=== PATIENT | female | born 1990 | race Caucasian/White ===

== ENCOUNTER 2022-11-04 11:17 | Emergency (ER) | payer OTHER, SELFPAY ==
[2022-11-04 11:42] VITALS: BP 126/79; PULSE 77; RESP 16; TEMP 36.3; O2SAT 99
--- NOTE | 2022-11-04 12:07 | ED.URI ---
HPI - URI/Sore Throat General Chief Complaint: Upper Respiratory Infection Stated Complaint: Sore Throat,Headache,Rt Ear Irritation Time Seen by Provider: 11/04/22 11:53 Source: patient, RN notes reviewed and old records reviewed Mode of arrival: ambulatory Limitations: no limitations History of Present Illness HPI Narrative: 32-year-old presents to the [facility] with complaints of sore throat, right ear pain and a sore on the right side of her tongue for 5 days. Patient reports that she has had swollen glands for several months seen her primary care for it. Denies any fevers No treatment prior to arrival Onset (ago): day(s) (5) Related Data Home Medications Medication Instructions Recorded Confirmed amitriptyline 25 mg tablet mg 11/04/22 famotidine 20 mg tablet mg 11/04/22 Allergies Allergy/AdvReac Type Severity Reaction Status Date / Time No Known Allergies Allergy Verified 11/04/22 12:13 Review of Systems Review of Systems: All systems reviewed & are unremarkable except as noted in HPI and below Constitutional: Constitutional: Reports no additional constitutional complaints Eyes: Eyes: Reports no additional eye complaints ENT: Reports as per HPI Cardiovascular: Cardiovascular: Reports no additional cardiovascular complaints, Denies chest pain and Denies dyspnea Respiratory: Respiratory: Reports no additional respiratory complaints, Denies chest congestion, Denies cough and Denies dyspnea Gastrointestinal: Gastrointestinal: Reports no additional gastrointestinal complaints, Denies abdominal pain, Denies nausea and Denies vomiting Musculoskeletal: Musculoskeletal: Reports no additional musculoskeletal complaints Integumentary/Breasts: Skin/Breast: Reports system reviewed and no additional complaints, except as docu Neurologic: Reports system reviewed and no additional complaints, except as documented Psychiatric: Psychiatric: Reports no additional psychiatric complaints Allergic/Immunologic: Allergic/Immunologic: Reports no additional allergic/immunologic complaints PMFSH Comments At the time of my signature, I reviewed and agree with the nursing past medical, surgical, social, and family history. There is no relevant family history pertinent to the patient complaint. Exam Const: General: cooperative, healthy appearing, comfortable, no acute distress, well developed, alert and well nourished Nutritional Appearance: well nourished and obese Orientation/consciousness: patient oriented x3 Limitations: no limitations HENMT: Head: normal to inspection Ears: hearing grossly normal bilaterally, external ears normal, EAC's normal and TM abnormal bulging on the right and with fluid behind the TM on the right Face/Nose/Sinus: Normal external nose present, Normal nares present, Normal nasal mucous membranes and turbinates present and normal facial exam Face and sinus: normal facial exam Mouth: Yes Normal oral and palatal mucosa present, Yes lip normal and Yes moist mucous membranes Mouth/tongue images: 1. Ulceration erythema Throat: posterior oropharynx normal, tonsils normal, uvula midline, postnasal drainage and no uvular edema Eyes: General: appearance normal, both eyes and all related structures Alignment and Position: alignment normal Periorbital: periorbital findings normal Pupils: Equal, round and reactive pupils present EOM: EOMs intact bilaterally Neck: Neck: normal visual inspection, full ROM, no meningeal signs and lymphadenopathy (Right submandibular, patient reports for several months, has seen PCM) Chest: Chest palpation & inspection: normal inspection of the chest Resp: Effort & Inspection: normal respiratory effort and able to speak in complete sentences Auscultation: clear to auscultation bilaterally, no crackles, no rales, no rhonchi and no wheezes Cardio: Rate: regular rate Rhythm: regular rhythm Back/Spine/Pelvis: Cervical Spine: cervical ROM normal Thoracic/Lumbar Spine: No
== END 2022-11-04 12:43 | disposition home or self-care (01) ==
PROVIDERS: Emergency Provider Nurse Practitioner
DX: K12.0 Recurrent oral aphthae (principal); J02.9 Acute pharyngitis, unspecified; H65.01 Acute serous otitis media, right ear
CPT/HCPCS: 87081; 87880; 99213; G0463

== ENCOUNTER 2022-11-14 19:55 | Emergency (ER) | payer OTHER, SELFPAY ==
--- NOTE | 2022-11-14 19:57 | ED.SKABFB ---
HPI - Skin/Abscess/Foreign Bdy General Chief complaint: Skin/Abscess/Foreign Body Stated complaint: Insect Bite Finger Rt Hand Time Seen by Provider: 11/14/22 20:00 Source: patient, RN notes reviewed and old records reviewed Mode of arrival: ambulatory Limitations: no limitations History of Present Illness HPI narrative: 32-year-old female presents to the [facility] concerns for an insect bite to the 2nd finger right hand. Patient states that [employer] is at her house and told she had spiders. Patient does bite her nails. States for the last 2 days was red, warm, swollen and draining purulent drainage. Has full range of motion. Capillary refill under 2 seconds Onset (ago): day(s) (2-3) Related Data Home Medications Medication Instructions Recorded Confirmed amitriptyline 25 mg tablet 25 mg PO DAILY 11/04/22 11/14/22 famotidine 20 mg tablet 20 mg PO DAILY 11/04/22 11/14/22 Allergies Allergy/AdvReac Type Severity Reaction Status Date / Time No Known Allergies Allergy Verified 11/14/22 19:59 Review of Systems Review of Systems: All systems reviewed & are unremarkable except as noted in HPI and below Constitutional: Constitutional: Reports no additional constitutional complaints Eyes: Eyes: Reports no additional eye complaints ENT: Reports system reviewed and no additional complaints, except as documented Cardiovascular: Cardiovascular: Reports no additional cardiovascular complaints, Denies chest pain and Denies dyspnea Respiratory: Respiratory: Reports no additional respiratory complaints, Denies chest congestion, Denies cough and Denies dyspnea Gastrointestinal: Gastrointestinal: Reports no additional gastrointestinal complaints, Denies abdominal pain, Denies nausea and Denies vomiting Musculoskeletal: Musculoskeletal: Reports no additional musculoskeletal complaints Integumentary/Breasts: Skin/Breast: Reports as per HPI Neurologic: Reports system reviewed and no additional complaints, except as documented Psychiatric: Psychiatric: Reports no additional psychiatric complaints Allergic/Immunologic: Allergic/Immunologic: Reports no additional allergic/immunologic complaints PMFSH Comments At the time of my signature, I reviewed and agree with the nursing past medical, surgical, social, and family history. There is no relevant family history pertinent to the patient complaint. Exam Const: General: cooperative, healthy appearing, comfortable, no acute distress, well developed, alert and well nourished Nutritional Appearance: well nourished and obese Orientation/consciousness: patient oriented x3 Limitations: no limitations HENMT: Head: normal to inspection Ears: hearing grossly normal bilaterally and external ears normal Face/Nose/Sinus: Normal external nose present, Normal nares present, Normal nasal mucous membranes and turbinates present and normal facial exam Face and sinus: normal facial exam Mouth: Yes lip normal Eyes: General: appearance normal, both eyes and all related structures Alignment and Position: alignment normal Periorbital: periorbital findings normal Pupils: Equal, round and reactive pupils present EOM: EOMs intact bilaterally Neck: Neck: normal visual inspection, full ROM, no lymphadenopathy and no meningeal signs Chest: Chest palpation & inspection: normal inspection of the chest Resp: Effort & Inspection: normal respiratory effort and able to speak in complete sentences Cardio: Rate: regular rate Rhythm: regular rhythm Back/Spine/Pelvis: Cervical Spine: cervical ROM normal Thoracic/Lumbar Spine: No thoracic spinal tenderness Skin: General skin exam: normal color and no rashes or lesions noted Lesions: no lesions Rashes: no rashes Wounds: no wounds Other: Paronychia that has already drained, no fluctuance drainage 2nd finger right hand Neuro: General: patient oriented x3, gait normal, tone normal, moves all extremities and no meningeal signs Cranial nerves: Yes
[2022-11-14 20:01] VITALS: BP 116/87; PULSE 81; RESP 18; TEMP 36.6; O2SAT 99
[2022-11-14 20:05] VITALS: BP 116/87; PULSE 81; RESP 18; TEMP 36.6; O2SAT 99
== END 2022-11-14 20:10 | disposition home or self-care (01) ==
PROVIDERS: Emergency Provider Nurse Practitioner
DX: L03.011 Cellulitis of right finger (principal)
CPT/HCPCS: 99213; G0463

== ENCOUNTER 2023-09-14 17:01 | Emergency (ER) | payer OTHER, SELFPAY ==
[2023-09-14 17:12] VITALS: BP 138/85; PULSE 78; RESP 16; TEMP 36.7; O2SAT 100
--- NOTE | 2023-09-14 17:14 | ED.URI ---
HPI - URI/Sore Throat General Chief Complaint: Upper Respiratory Infection Stated Complaint: Headache,Cough,Body Aches Time Seen by Provider: 09/14/23 17:15 Source: patient and RN notes reviewed Mode of arrival: ambulatory Limitations: no limitations History of Present Illness HPI Narrative: 33-year-old female presents concern for one-week history of cough, headache, chest congestion, general malaise, body aches, low-grade temperature. Reports symptoms got worse yesterday. Reports she has been taking multi symptom cold medicine without relief MD elicited complaint: cough Related Data Home Medications Medication Instructions Recorded Confirmed famotidine 20 mg tablet 20 mg PO DAILY 11/04/22 09/14/23 galcanezumab-gnlm 120 mg/mL 120 mg subcut MONTHLY 09/14/23 09/14/23 subcutaneous pen injector (Emgality Pen) ubrogepant 100 mg tablet (Ubrelvy) 100 mg PO PRN PRN Migraine Headache 09/14/23 09/14/23 Allergies Allergy/AdvReac Type Severity Reaction Status Date / Time No Known Allergies Allergy Verified 09/14/23 17:09 Review of Systems Review of Systems: CONSTITUTIONAL: Reports malaise, fever. EYES: Denies visual changes, redness, or discharge. ENT: Reports rhinorrhea, congestion, CARDIOVASCULAR: Denies chest pain, palpitations, or edema. RESPIRATORY: Reports cough, chest congestion. Denies dyspnea. GASTROINTESTINAL: Denies abdominal pain, nausea, vomiting, diarrhea SKIN: Denies rash or itching. MUSCULOSKELETAL: Reports myalgia. NEUROLOGIC: Reports headache. All systems reviewed & are unremarkable except as noted in HPI and below PMFSH Comments At time of signature, agree with nursing past medical, surgical, social and family history. There is no relevant family history pertinent to the presenting complaint Exam Narrative: GENERAL: Well-appearing, well-nourished, and in no acute distress. HEAD: Normocephalic EYES: PERRLA, conjunctivae clear ENT: Nares clear. Mucous membranes moist. TM pearly hilton with dull light reflex bilaterally; no tragal tenderness. Oropharynx not erythematous without lesions. Tonsils not enlarged and without exudate, no drooling, no hoarseness, no trismus, uvula midline. NECK: Supple. No lymphadenopathy CHEST: Clear to auscultation, breath sounds equal. No wheezing, rhonchi, rales, or stridor. No respiratory distress, speaks in full sentences. Harsh cough noted HEART: Regular rate and rhythm. No murmur heard. SKIN: Warm, dry, no rash. NEURO: Alert and oriented x3. PSYCH: Normal mood and affect Course Course Emergency Course: Patient is aware of diagnosis, understands and agrees to treatment plan. Anticipatory guidance given. Patient agrees to follow-up as directed and is aware of reasons to seek care at the emergency department. Portions of this record may have been created with voice recognition software Level of Care: Express Care Visit Vital Signs Vital signs: Vital Signs Temperature 98.0 F 09/14/23 17:12 Pulse Rate 78 09/14/23 17:12 Respiratory Rate 16 09/14/23 17:12 Blood Pressure 138/85 09/14/23 17:12 Pulse Oximetry 100 09/14/23 17:12 Oxygen Delivery Room Air 09/14/23 17:12 Temperature 98.0 F 09/14/23 17:12 Pulse Rate 78 09/14/23 17:12 Respiratory Rate 16 09/14/23 17:12 Blood Pressure 138/85 09/14/23 17:12 Pulse Oximetry 100 09/14/23 17:12 Oxygen Delivery Room Air 09/14/23 17:12 Reviewed. MDM - URI/Sore Throat MDM Narrative Medical decision making narrative: Differential diagnosis considered: Mcconnell virus, strep pharyngitis, allergic rhinitis, upper respiratory tract infection, sinusitis, rhinosinusitis, nasopharyngitis. viral pharyngitis, otitis media, otitis externa, pneumonia, bronchitis, viral cough syndrome, viral syndrome, and influenza. Exam findings show no acute concerns or changes; patient is non-toxic appearing and is in no distress. Patient is appropriate for outpatient treatment and follow-up. Lab
== END 2023-09-14 17:38 | disposition home or self-care (01) ==
PROVIDERS: Emergency Provider Nurse Practitioner
DX: J22 Unspecified acute lower respiratory infection (principal); Z20.822 Contact with and (suspected) exposure to COVID-19; K21.9 Gastro-esophageal reflux disease without esophagitis; Z86.16 Personal history of COVID-19
CPT/HCPCS: 87426; 87804; 99213; G0463

== ENCOUNTER 2023-11-06 17:31 | Emergency (ER) | payer OTHER, SELFPAY ==
[2023-11-06 17:39] VITALS: BP 133/85; PULSE 80; RESP 18; TEMP 36.7; O2SAT 100
--- NOTE | 2023-11-06 17:55 | ED.WOUNDLAC ---
HPI - Wound/Laceration General Chief Complaint: Wound/Laceration Stated Complaint: spider bite Time Seen by Provider: 11/06/23 17:55 Source: patient, RN notes reviewed and old records reviewed Mode of arrival: ambulatory Limitations: no limitations History of Present Illness HPI narrative: 33-year-old female to Express [facility] for complaint of spider bite to right upper inner arm. Patient states she 1st noticed the area yesterday and marked it to keep track of progress. At that time the area was 1.5 cm by 1.5 cm. Upon arrival surrounding erythema is 8 cm x 6 cm. Patient endorses headache, states history of migraines. Patient denies nausea, cough, shortness of breath, vomiting, allergies, joint pain, drainage from wound. Patient states that she did squeeze the area last night in an attempt to remove drainage. Patient able to tolerate fluids by mouth. Patient speaking in full sentences without difficulty. Respirations even and nonlabored. Patient in no acute distress. Related Data Home Medications Medication Instructions Recorded Confirmed famotidine 20 mg tablet 20 mg PO DAILY 11/04/22 11/06/23 galcanezumab-gnlm 120 mg/mL 120 mg subcut MONTHLY 09/14/23 11/06/23 subcutaneous pen injector (Emgality Pen) ubrogepant 100 mg tablet (Ubrelvy) 100 mg PO PRN PRN Migraine Headache 09/14/23 11/06/23 levonorgestrel 21 mcg/24 hr (up to 1 device intrauterine ONCE 11/06/23 11/06/23 8 years) 52 mg intrauterine device (Mirena) Allergies Allergy/AdvReac Type Severity Reaction Status Date / Time No Known Allergies Allergy Verified 11/06/23 17:44 Review of Systems Review of Systems: All systems reviewed & are unremarkable except as noted in HPI and below Constitutional: Constitutional: Reports as per HPI, Denies body ache(s), Denies chills, Denies fatigue and Denies fever(s) Eyes: Eyes: Reports no additional eye complaints ENT: Reports system reviewed and no additional complaints, except as documented Cardiovascular: Cardiovascular: Reports no additional cardiovascular complaints, Denies chest pain and Denies dyspnea Respiratory: Respiratory: Reports no additional respiratory complaints, Denies cough and Denies dyspnea Musculoskeletal: Musculoskeletal: Reports no additional musculoskeletal complaints Integumentary/Breasts: Skin/Breast: Reports as per HPI and Reports new lesions (right upper inner arm; suspected spider bite per pt) Neurologic: Reports system reviewed and no additional complaints, except as documented Psychiatric: Psychiatric: Reports no additional psychiatric complaints PMFSH Comments At the time of my signature, I reviewed and agree with the nursing past medical, surgical, social, and family history. There is no relevant family history pertinent to the patient complaint. Exam Const: General: cooperative, healthy appearing, comfortable, no acute distress, alert and well nourished Nutritional Appearance: well nourished Orientation/consciousness: patient oriented x3 Limitations: no limitations HENMT: Head: normal to inspection Ears: external ears normal Face/Nose/Sinus: Normal external nose present, Normal nares present, normal facial exam, No erythema and No edema Face and sinus: normal facial exam, no erythema and no edema Mouth: Yes Normal oral and palatal mucosa present Eyes: General: appearance normal, both eyes and all related structures Neck: Neck: normal visual inspection, full ROM and no meningeal signs Lymphatic: no lymphadenopathy noted and no lymphedema noted Chest: Chest palpation & inspection: normal inspection of the chest Resp: Effort & Inspection: normal respiratory effort and able to speak in complete sentences Cardio: Jugular venous distension: no JVD Rate: regular rate Rhythm: regular rhythm Back/Spine/Pelvis: Cervical Spine: cervical ROM normal Skin: General skin exam: normal color and other Other: Suspected spider bite to right proximal medial arm. Area
== END 2023-11-06 18:04 | disposition home or self-care (01) ==
PROVIDERS: Emergency Provider Nurse Practitioner Family
DX: S40.861A Insect bite (nonvenomous) of right upper arm, initial encounter (principal); W57.XXXA Bitten or stung by nonvenomous insect and other nonvenomous arthropods, initial encounter; K21.9 Gastro-esophageal reflux disease without esophagitis; Z86.16 Personal history of COVID-19
CPT/HCPCS: 99213; G0463

== ENCOUNTER 2024-02-22 11:14 | Emergency (ER) | payer OTHER, SELFPAY ==
[2024-02-22 11:45] VITALS: BP 134/73; PULSE 68; RESP 18; TEMP 36.6; O2SAT 98
--- NOTE | 2024-02-22 12:03 | ED_ITS ---
HPI - General Adult General Chief complaint: Upper Respiratory Infection Stated complaint: cough / headache / vomiting Time Seen by Provider: 02/22/24 12:03 Source: patient Mode of arrival: ambulatory Limitations: no limitations History of Present Illness HPI narrative: 34-year-old female patient presents to the [facility] with complaints of cold symptoms for the past 5 days. Denies fevers, body aches or chills. Patient states she has had a cough and sometimes she coughs so hard that she throws up. Patient states she has been feeling very fatigued, congestion. Patient states she was recently in the hospital with her who was being treated for rhabdomyolysis. Patient states she has been taking some [id number] cold and flu medication for her symptoms without much relief. Denies any abdominal pain, nausea, vomiting or diarrhea. Related Data Home Medications Medication Instructions Recorded Confirmed famotidine 20 mg tablet 20 mg PO DAILY 11/04/22 02/22/24 galcanezumab-gnlm 120 mg/mL 120 mg subcut MONTHLY 09/14/23 02/22/24 subcutaneous pen injector (Emgality Pen) ubrogepant 100 mg tablet (Ubrelvy) 100 mg PO PRN PRN Migraine Headache 09/14/23 02/22/24 levonorgestrel 21 mcg/24 hr (up to 1 device intrauterine ONCE 11/06/23 02/22/24 8 years) 52 mg intrauterine device (Mirena) Allergies Allergy/AdvReac Type Severity Reaction Status Date / Time No Known Allergies Allergy Verified 02/22/24 11:44 Review of Systems Review of Systems: CONSTITUTIONAL: Denies fever, chills, or sweats. EYES: Denies visual changes, redness, or discharge. ENT: Positive rhinorrhea, congestion, sore throat, and bilateral otalgia. CARDIOVASCULAR: Denies chest pain, palpitations, or edema. RESPIRATORY: positive cough , denies dyspnea. GASTROINTESTINAL: Denies abdominal pain, nausea, vomiting, or diarrhea. GENITOURINARY: Denies dysuria or hematuria. SKIN: Denies rash or itching. MUSCULOSKELETAL: Denies back pain, joint pain, or myalgia. NEUROLOGIC: Denies headache, numbness, or weakness. PSYCHIATRIC: Denies anxiety or depression. [facility] Past Medical History Medical History (Updated 02/22/24 @ 12:31 by BLU Ron) No significant past medical history Comments At the time of my signature I agree with nursing past medical history, surgical, social, and family history. There is no relevant family history pertinent to the presenting complaint. Exam Narrative: GENERAL: Well-appearing, well-nourished, and in no acute distress. HEAD: Normocephalic, atraumatic. EYES: PERRLA and EOMI. ENT: Nares with erythema edema noted bilaterally with the left near swollen shut, no rhinorrhea or epistaxis. Mucous membranes moist. posterior pharynx with slight erythema no tonsillar enlargement, no exudates or lesions present. Bilateral TMs are clear with no erythema or foreign bodies the canal. NECK: Supple. No lymphadenopathy CHEST: Clear to auscultation. No respiratory distress. Patient able talk with clear complete symptoms since but there is a deep cough noted during exam HEART: Regular rate and rhythm. No murmur heard. Normal peripheral pulses. ABDOMEN: Soft, nontender, nondistended, normal active bowel sounds. EXTREMITIES: Normal range of motion. No edema. SKIN: Warm, dry, no rash. NEURO: No focal deficits. Alert and oriented x3. Course Course Level of Care: Express Care Visit Reevaluation(s) Reevaluation #1: Re-evaluated patient notified her that her swabs were negative today. We will send the throat swab off to the lab for culture however she can continue treating herself with [id number] medications for her symptoms. I did prescribe her some Tessalon Perles to help with the coughing. Discussed with patient that it she would need to get lots of rest, increase her fluids and if symptoms last longer than 10 days she needs to see her primary doctor. Patient has verbalized understanding denies any other questions or concerns at this time. Date: 02/22/24 Time: 12:35 Vital Signs Vital signs: Vital Signs Temperature 36.6 C 02/22/24 11:45 Pulse Rate 68 02/22/24 11:45 Respiratory Rate 18 02/22/24 11:45 Blood Pressure 134/73 02/22/24 11:45 Pulse Oximetry 98 02/22/24 11:45 Oxygen Delivery Room Air 02/22/24 11:45 Temperature 36.6 C 02/22/24 11:45 Pulse Rate 68 02/22/24 11:45 Respiratory Rate 18 02/22/24 11:45 Blood Pressure 134/73 02/22/24 11:45 Pulse Oximetry 98 02/22/24 11:45 Oxygen Delivery Room Air 02/22/24 11:45 vital signs reviewed. Medical Decision Making MDM Narrative Medical decision making narrative: plan care patient is to test her today for influenza a, COVID and strep 6 specially since she was recently in the hospital setting. I will reassess her once this has resulted. Differential Diagnosis Differential Diagnosis: Differential diagnosis: Allergic rhinitis, chronic sinusitis, tonsillitis, acute sinusitis, infectious mononucleosis, seasonal influenza, pertussis, diphtheria, meningococcal disease, viral syndrome, viral bronchitis, RSV, COVID- 19 Vital Signs Vital Signs: Vital Signs Temperature 36.6 C 02/22/24 11:45 Pulse Rate 68 02/22/24 11:45 Respiratory Rate 18 02/22/24 11:45 Blood Pressure 134/73 02/22/24 11:45 Pulse Oximetry 98 02/22/24 11:45 Oxygen Delivery Room Air 02/22/24 11:45 Temperature 36.6 C 02/22/24 11:45 Pulse Rate 68 02/22/24 11:45 Respiratory Rate 18 02/22/24 11:45 Blood Pressure 134/73 02/22/24 11:45 Pulse Oximetry 98 02/22/24 11:45 Oxygen Delivery Room Air 02/22/24 11:45 Critical Care Time Critical Care Time Critical Care Time: No Discharge Plan Discharge Clinical Impression: Viral URI with cough Patient Disposition: Home, Self-Care Condition: Stable Instructions: Antibiotic Form, Upper Respiratory Infection (ED), Viral Syndrome (ED) Additional Instructions: Viral illness may last between 7-12days; antibiotic is NOT recommended at this time. Recommend antihistamine such as Benadryl at night time and Claritin/Zyrtec/Carole during the day Cough syrup may cause drowsiness; avoid driving or take it at night time. Also, recommend symptomatic treatment includes: rest, fluids, and increase humidity of the air at home. Recommend Acetaminophen or nonsteroidal anti-inflammatory agents (NSAIDs) as directed in the bottle to reduce fever and/pain/headache. Avoid smoking/second-hand smoke. Limit visits to areas with large crowds. Please schedule a follow-up visit with your personal physician for further evaluation and treatment within 3-5days. Including recheck and discussion of your blood pressure. If your symptoms persist, change or worsen significantly before you can contact your personal physician then please, without delay, go to the emergency department for further evaluation. Prescriptions: New benzonatate 200 mg capsule 200 mg PO TID PRN (Reason: cough) 10 Days Qty: 30 0RF No Action Mirena 21 mcg/24 hr (8 yrs) 52 mg Intrauterine Device 1 device INTRAUTERINE ONCE Rx Instructions: as a single dose famotidine 20 mg tablet 20 mg PO DAILY Ubrelvy 100 mg tablet 100 mg PO PRN PRN (Reason: Migraine Headache) Emgality Pen 120 mg/mL pen injector 120 mg SUBCUT MONTHLY Follow-up/Referrals: Sofia,Kisha Sarabia [Other] Time of Disposition: 12:32
[2024-02-22 12:34] LABS: EDCOVIDSCREEN Negative (Negative); EDINFLUASCREEN Negative (Negative); EDINFLUBSCREEN Negative (Negative)
[2024-02-22 12:35] LABS: EDSTREPNEGPOS1 Negative (Negative)
== END 2024-02-22 12:38 | disposition home or self-care (01) ==
PROVIDERS: Emergency Provider Nurse Practitioner Family
DX: J06.9 Acute upper respiratory infection, unspecified (principal); Z20.822 Contact with and (suspected) exposure to COVID-19
CPT/HCPCS: 87081; 87426; 87804; 87880; 99213; G0463

== ENCOUNTER 2024-07-06 10:06 | Emergency (ER) | payer SELFPAY ==
[2024-07-06 10:17] VITALS: BP 141/98; PULSE 70; RESP 16; TEMP 36.5; O2SAT 100
--- NOTE | 2024-07-06 10:23 | ED_ITS ---
HPI - Back Pain/Injury General Chief Complaint: Back Pain/Injury Stated Complaint: Back Pain Source: patient Mode of arrival: ambulatory Limitations: no limitations History of Present Illness HPI Narrative: 34-year-old female history of DDD presented for complaint of pain across low back worsening for 2 days. Endorses radiating to hips and knees. States she has been 'babying it' since she felt it coming on. Has been taking Motrin, Tylenol, cyclobenzaprine, ice/heat, and pain patches. Reports a history of back flares, without injury. Says today at work just standing at a [employer] for a few hours caused the pain to make her legs feel like they were on fire. Denies numbness, tingling, weakness of the lower extremities, or change in gait, saddle paresthesia or loss of bowel or bladder. Related Data Home Medications ?Medication ?Instructions ?Recorded ?Confirmed ?Last Taken ?Type famotidine 20 mg tablet 20 mg PO DAILY 11/04/22 02/22/24 Unknown History galcanezumab-gnlm 120 mg/mL 120 mg subcut MONTHLY 09/14/23 02/22/24 Unknown History subcutaneous pen injector (Emgality Pen) ubrogepant 100 mg tablet (Ubrelvy) 100 mg PO PRN PRN Migraine Headache 09/14/23 02/22/24 Unknown History levonorgestrel (Mirena) 1 device intrauterine ONCE 11/06/23 02/22/24 Unknown History Allergies Allergy/AdvReac Type Severity Reaction Status Date / Time No Known Allergies Allergy Verified 07/06/24 10:28 Review of Systems Review of Systems: CONSTITUTIONAL: Denies body aches, fever, chills EYES: Denies visual changes CARDIOVASCULAR: Denies chest pain, palpitations, or edema. RESPIRATORY: Denies cough or dyspnea. GASTROINTESTINAL: Denies abdominal pain, nausea, vomiting, or diarrhea. SKIN: Denies rash, itching, or wounds. MUSCULOSKELETAL: reports back pain NEUROLOGIC: Denies headache, numbness, tingling, or weakness. All systems reviewed & are unremarkable except as noted in HPI and below PMFSH Past Medical History Medical History (Updated 07/06/24 @ 10:48 by Marlee Meneses, PRINTING WORKER SUPERVISOR) No significant past medical history Comments At time of signature, I have reviewed and agree with nursing past medical, surgical, social and family history unless otherwise noted. Please see nursing chart for further information. There is no relevant family history pertinent to the presenting complaint Exam Narrative: GENERAL: appears in pain; and in no acute distress. HEAD: Normocephalic, atraumatic. EYES: conjunctivae clear NECK: Supple. full ROM CHEST: Speaks in full sentences. No respiratory distress. HEART: Regular rate and rhythm. Normal and equal peripheral pulses. MUSC: No Vertebral point tenderness. Low back with pain patch in place. BLEs with normal strength and sensation, normal range of motion. Pt endorses pain with movement. No bruising, open wounds, or obvious deformity; pulse palpable and equal bilaterally, skin warm, dry, pink. Capillary refill less than 3 seconds. Gait steady/guarded. SKIN: Warm, dry, no rash. NEURO: Alert and oriented x3. Course Course Emergency Course: Patient is aware of diagnosis, understands and agrees to treatment plan. Anticipatory guidance given. Patient agrees to follow-up as directed and is aware of reasons to seek care at the emergency department. Portions of this record may have been created with voice recognition software Level of Care: Express Care Visit Vital Signs Vital signs: Vital Signs Temperature 97.9 F 07/06/24 10:17 Pulse Rate 85 07/06/24 10:17 Respiratory Rate 18 07/06/24 10:17 Blood Pressure 109/82 07/06/24 10:17 Pulse Oximetry 98 07/06/24 10:17 Oxygen Delivery Room Air 07/06/24 10:17 Temperature 97.9 F 07/06/24 10:17 Pulse Rate 85 07/06/24 10:17 Respiratory Rate 18 07/06/24 10:17 Blood Pressure 109/82 07/06/24 10:17 Pulse Oximetry 98 07/06/24 10:17 Oxygen Delivery Room Air 07/06/24 10:17 Reviewed MDM - Back Pain/Injury MDM Narrative Medical decision making narrative: Discussed physical exam findings. Reviewed prescriptions. Advised supportive measures and s/s to go to the ER. Pt is stable and appropriate for outpt treatment and follow up with pcp. Differential Diagnosis Differential diagnosis: Likely lumbar radiculopathy, sciatica, strain of lumbar region, renal colic, pyelonephritis and discitis Discharge Plan Discharge Clinical Impression: Low back pain Patient Disposition: Home, Self-Care Condition: Stable Instructions: Antibiotic Form, Back Pain (ED) Additional Instructions: Please establish and follow up with your Primary Care Doctor. call for an appointment. Avoid lifting. pushing. pulling, or anything that worsens the pain. Walking and other gentle exercising several times a week has been shown to improve back pain; bed rest is not recommended. Take Motrin 800mg along with Tylenol 1000mg every 8 hours (limit use of Motrin/ibuprofen/Advil/Aleve etc while taking steroid) Take muscle relaxers every 8 hours as needed for muscle spasm- do not drive or make any important decisions while on this medication for it can make you drowsy. Over the counter pain cream like icy/hot or biofreeze, or Salon pas/lidocaine 4% patch. You may apply heat or cold to the area as needed. Go to the ER if you experience any worsening pain, swelling, numbness, weakness, problems with bladder or bowel function, weakness or loss of feeling in one or both of your legs, or any other serious concerns. Patient Language: German Prescriptions: New cyclobenzaprine 10 mg tablet 10 mg PO TID PRN (Reason: muscle spasm) Qty: 12 0RF prednisone 20 mg tablet 20 mg PO DAILY Qty: 12 0RF Rx Instructions: take 3 tablets daily for 2 days, then 2 tablets daily for 2 days then 1 tablet daily for 2 days No Action Mirena 21 mcg/24 hr (8 yrs) 52 mg Intrauterine Device 1 device INTRAUTERINE ONCE Rx Instructions: as a single dose famotidine 20 mg tablet 20 mg PO DAILY Ubrelvy 100 mg tablet 100 mg PO PRN PRN (Reason: Migraine Headache) Emgality Pen 120 mg/mL pen injector 120 mg SUBCUT MONTHLY benzonatate 200 mg capsule 200 mg PO TID PRN (Reason: cough) 10 Days Qty: 30 0RF Follow-up/Referrals: PHYSICIAN,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
--- OUTSIDE RECORDS SUMMARY | 2024-07-06 11:49 | XMS_ITS | Data Portability ---
Author Organization [employer] , [facility] Address [address] [place] [address] Assessment No assessment recorded. Plan of Treatment Reminders Order Date Submit Date Provider Last Modified By Organization Details Last Modified Time Details Appointments None record ed. Lab cultur e, urine 2023 [employer] [facility], [address] [place], [address], 4 21:12:37 urinal ysis, dipsti ck 2023 024 [email or web address] [facility], [address] [place], [address], 4 12:25:32 bacter ial vagino sis + vagini tis panel, vagina l 2023 024 [employer] [facility], [address] [place], [address], 4 13:29:36 bacter ial vagino sis + vagini tis panel, vagina l 2021 022 [employer], [address] [place], [address], 2 14:09:46 HPV E6+E7 mRNA, qualit ative PCR, cervix 2021 022 [employer], [address] [place], [address], 2 16:09:21 pap, LB 2021 022 [place] [facility], [address] [facility], [place], [address], 2 09:32:22 Referral pelvic floor therap y referr francia Cunningham t, kay te and treat for pelvic floor physic al therap y. 2023 024 [email or web address] [facility], [address] [facility], [place], [address], 4 14:36:10 Procedures None record ed. Surgeries None record ed. Imaging US, transv aginal [address], [address] [place] [address], [place], [address], 3 11:05:33 US, transv aginal - IUD placem ent verifi cation 2021 022 [facility], [address] [place] [address], [place], [address], 2 15:48:47 Medication Orders Difluc an 150 mg tablet 2023 024 [facility], [address] [place], [address], 4 17:13:02 doxycy box hyclat e 100 mg capsul e 2022 023 [facility], [address] [address], [place], [address], 4 10:39:29 estrad iol 1 mg tablet 2022 023 [facility], [address], [address], 4 10:40:22 Mirena 21 mcg/24 hr (up to 8 years) 52 mg intrau terine device 2021 022 [email or web address] Not available 20:09:48 Patient TargetsNo targets recorded. Patient Instructions Encounter Date Encounter Id Patient Instructions Last Modified By Organization Details Last Modified Time 03/04/2022 [id number] - Refrain from washcloth/loofah use, kaplan marcia products, frequent pantiliner use. - Pt instructed to wear cotton underwear, changing out of workout clothes quickly, hypoallergenic soap. -Discussed vaginal hygiene. -Encouraged safe sex. - Use a detergent free of dyes, enzymes and perfumes. Avoid using fabric softeners. Soak and rinse when using a stain removing product and then wash normally. Do not use a fabric softener. Soak and rinse in clear water all underwear and towels on when you have used a stain removing product. Then wash in your regular washing cycle. -Avoid tight clothing, especially clothing made of synthetic fabrics. Remove wet bathing and exercise clothing as soon as you can. - Avoid bath soaps, lotions, gels, etc. which contain perfumes. This includes many baby products and feminine hygiene products marked mild or for vaginal health . We suggest any of the following soaps: Dove-Hypoallergeni c, Neutrogena, Basis, or Pearls. Do not use soap directly on the vulvar skin just warm water and your hand will keep the vulvar area clean without irritating the skin. - Avoid all bubble baths, bath salts and scented oils. -Do not use hot water while bathing or showering. Only luke-warm water should only be used. -Avoid all feminine hygiene sprays, perfumes, adult, or baby wipes. Pour lukewarm water over the vulva after urinating if urine causes burning of the skin. Pat dry rather than rubbing with a towel. - Avoid the use of deodorized pads and tampons. Tampons should be used when the blood flow is heavy enough to soak one tampon in four hours or less. Tampons are safe for most women, but wearing them too long or when the blood flow is light may result in vaginal infection, increased discharge, odor, or toxic shock syndrome. Also, use only pads that have a cotton liner that comes in contact with your skin (no dry weave pads). - Avoid all over the counter creams or ointments, except A&D Ointment (if you have wool allergy do not use A&D). -DO NOT DOUCHE. Baking soda soaks will help rinse away extra discharge and help with odor. -DO NOT SHAVE, wax or laser the vulvar area (the bikini line is ok). -Some women may have problems with chronic dampness. Keeping dry is important. Choose cotton fabrics whenever you can. -Keep an extra pair of underwear with you in a small bag and change if you become damp during the day at work/school. -Gold Villatoro Powder or Zeosorb Powder may be applied to the vulva and groin area one to two times per day to help absorb moisture. -Dryness and irritation during intercourse may be helped by using a lubricant. Use a small amount of a pure vegetable oil/olive oil or Crisco (solid or oil). The vegetable oils contain no chemicals to irritate vulvar/vaginal skin. Vegetable oils will rinse away with water and will not increase your chances of infection. Water-based products like K-Y Jelly are helpful, but may tend to dry before intercourse is over and also contain chemicals that can irritate your vulvar skin. It may be helpful to use a non-lubricated, non-spermicidal condom, and use vegetable oil as the lubricant. This will help keep the semen off the skin which can decrease burning and irritation after intercourse. CONTROL OPTIONS 1. All hormonal contraceptives will have an effect on vaginal secretions but should not increase your frequency of vaginitis. 2. Lubricated condoms, contraceptive jellies, creams, or sponges may cause itching and burning. Ask your health care provider for help. 3. The use of latex condoms with a vegetable oil as a lubricant (#14 above) is suggested to protect your skin. Oil based lubricants may affect the integrity of condoms when used for control or prevention of sexually transmitted diseases. Our experience has not found this to be a problem with vegetable based oils. However, the Centers for Disease Control recommends that condoms not be used with any oil based lubricants for control or prevention of sexually transmitted disease. Discussed ureaplasma/mycopla sma testing and treatment, if indicated. [email or web address] Not available 03/04/2022 09:13:28 01/12/2024 [id number] vaginal yeast infection: care instructions [email or web address] Not available 01/12/2024 17:12:55 Reason for Referral Pelvic Floor Therapy Referra l for Genuine stress incontinence Consult, evaluate and treat for pelvic floor physical therapy. Referring Physician: Mary Sorensen, NET DEVELOPER [employer]CHIT[employer], Encounter Date: 12/22/2023 Results Created Date Observation Date Name Description Value Unit Range Abnormal Flag Note LastModifiedBy Organization Detail LastModifiedTime 04/26/19 22 04/30/2021 THINP REP TIS PAP RFX HPV clinical information: normal Infor matio n not provi ded Not Available [address], [address], 04/30/2021 12:42:44 04/26/19 22 04/30/2021 THINP REP TIS PAP RFX HPV LMP: normal NONE GIVEN Not Available [address], [address], 04/30/2021 12:42:44 04/26/19 22 04/30/2021 THINP REP TIS PAP RFX HPV prev. Pap: normal NONE GIVEN Not Available [address], [address], 04/30/2021 12:42:44 04/26/19 22 04/30/2021 THINP REP TIS PAP RFX HPV prev. BX: normal NONE GIVEN Not Available [address], [address], 04/30/2021 12:42:44 04/26/19 22 04/30/2021 THINP REP TIS PAP RFX HPV source: normal None given Not Available [address], [address], 04/30/2021 12:42:44 04/26/19 22 04/30/2021 THINP REP TIS PAP RFX HPV statement of adequacy: Speci men proce ssed and exami tank, but unsat isfac tory for evalu ation due to an insuf ficie nt numbe r of squam ous cells . Not Available [address] [address] [place], [address], 04/30/2021 12:42:44 04/26/19 22 04/30/2021 THINP REP TIS PAP RFX HPV interpretati on/result: Unabl e to provi de inter preta tion due to unsat isfac tory speci men adequ acy. Not Available [address] [address] [place], [address], 04/30/2021 12:42:44 04/26/19 22 04/30/2021 THINP REP TIS PAP RFX HPV comment: normal This Pap test has been evalu ated with compu ter kvng candice techn ology . Not Available [address] [address] [place], [address], 04/30/2021 12:42:44 04/26/19 22 04/30/2021 THINP REP TIS PAP RFX HPV cytotechnolo gist: normal LMT, CT( CP) CT scree arslan locat ion: [address] [address] [place] [address] Not Available [address] [address] [place], [address], 04/30/2021 12:42:44 04/26/19 22 04/30/2021 THINP REP TIS PAP RFX HPV review cytotechnolo gist: normal MMW, CT( CP) CT scree arslan locat ion: [address] [address] [place] [address] Not Available [address] [address] [place], [address], 04/30/2021 12:42:44 04/26/19 22 04/30/2021 THINP REP TIS PAP RFX HPV comment EXPLA NATOR Y NOTE: The Pap is a scree arslan test for cervi timoteo cance r. It is not a diagn ostic test and is subje ct to false negat bernardino and false posit bernardino resul ts. It is most relia ble when a satis facto ry sampl e, regul tisha obtai tank, is submi tted with relev ant clini timoteo findi ngs and histo ry, and when the Pap resul t is evalu ated along with histo leno and curre nt clini timoteo infor matio n. Not Available [facility] [address] [place], [address], 04/30/2021 12:42:44 03/04/20 22 03/05/2022 VAGIN ITIS PANEL bacterial vaginosis BV POS negati ve abnormal Not Available [address], [address], 03/05/2022 14:09:46 03/04/20 22 03/05/2022 VAGIN ITIS PANEL mihir species C. spp neg negati ve normal Not Available [address], [address], 03/05/2022 14:09:46 03/04/20 22 03/05/2022 VAGIN ITIS PANEL mihir glabrata C. gla neg negati ve normal Not Available [address], [address], 03/05/2022 14:09:46 03/04/20 22 03/05/2022 VAGIN ITIS PANEL trichomonas vaginalis CV/TV TRICH neg negati ve normal Not Available [address], [address], 03/05/2022 14:09:46 03/04/20 22 03/05/2022 HPV HIGH RISK HPV high risk Negati ve negati ve normal The HPV High Risk assay is inten ded for use as co-te sting with cytol ogy and not as a subst itute for regul ar cervi timoteo cytol ogy scree arslan. This assay is not inten ded for use as a scree arslan devic e for women under age 30 with marie l cervi timoteo cytol ogy. Not Available [facility] [address] [place], [address], 03/05/2022 16:09:20 03/04/20 22 03/11/2022 THINP REP TIS PAP clinical information: normal None given Not Available [address], [address], 03/11/2022 09:32:22 03/04/20 22 03/11/2022 THINP REP TIS PAP LMP: normal NONE GIVEN Not Available [address], [address], 03/11/2022 09:32:22 03/04/20 22 03/11/2022 THINP REP TIS PAP prev. Pap: normal NONE GIVEN Not Available [address] [place], [address], 03/11/2022 09:32:22 03/04/20 22 03/11/2022 THINP REP TIS PAP prev. BX: normal NONE GIVEN Not Available [address] [place], [address], 03/11/2022 09:32:22 03/04/20 22 03/11/2022 THINP REP TIS PAP source: normal Cervi x Not Available [address] [place], [address], 03/11/2022 09:32:22 03/04/20 22 03/11/2022 THINP REP TIS PAP statement of adequacy: normal Satis facto ry for evalu ation . Endoc ervic al/tr ansfo rmati on zone compo nent prese nt. Age and/o r menst rual statu s not provi ded Not Available [address] [place], [address], 03/11/2022 09:32:22 03/04/20 22 03/11/2022 THINP REP TIS PAP interpretati on/result: normal Negat bernardino for intra epith elial lesio n or constantino rodarte . Not Available [address] [place], [address], 03/11/2022 09:32:22 03/04/20 22 03/11/2022 THINP REP TIS PAP comment: normal This Pap test has been evalu ated with compu [place] techn ology . Not Available [address] [address] [place], [address], 03/11/2022 09:32:22 03/04/20 22 03/11/2022 THINP REP TIS PAP cytotechnolo gist: normal LMT, CT( CP) CT scree arslan locat ion: [address] [address] [place] [address] Not Available [address] [address] [place], [address], 03/11/2022 09:32:22 03/04/20 22 03/11/2022 THINP REP TIS PAP comment EXPLA NATOR Y NOTE: The Pap is a scree arslan test for cervi timoteo cance r. It is not a diagn ostic test and is subje ct to false negat bernardino and false posit bernardino resul ts. It is most relia ble when a satis facto ry sampl e, regul tisha obtai tank, is submi tted with relev ant clini timoteo findi ngs and histo ry, and when the Pap resul t is evalu ated along with histo leno and curre nt clini timoteo infor matio n. Not Available [address], [address], 03/11/2022 09:32:22 12/22/19 24 12/23/2023 CULTU RE, URINE , ROUTI NE culture, urine, routine SEE NOTE CULTU RE, URINE , ROUTI NE Micro Numbe r: [id number] Test Statu s: Final Speci men Sourc e: Urine Speci men Quali ty: Adequ ate Resul t: No Growt h Not Available [facility] [address] [place], [address], 12/23/2023 21:12:37 12/22/19 24 12/24/2023 VAGIN ITIS PLUS STD PANEL bacterial vaginosis BV POS negati ve abnormal Not Available [address], [address], 12/24/2023 13:29:36 12/22/19 24 12/24/2023 VAGIN ITIS PLUS STD PANEL mihir species C. spp neg negati ve normal Not Available [address], [address], 12/24/2023 13:29:36 12/22/19 24 12/24/2023 VAGIN ITIS PLUS STD PANEL mihir glabrata C. gla neg negati ve normal Not Available [address], [address], 12/24/2023 13:29:36 12/22/19 24 12/24/2023 VAGIN ITIS PLUS STD PANEL trichomonas vaginalis CV/TV TRICH neg negati ve normal Not Available [address], [address], 12/24/2023 13:29:36 12/22/19 24 12/24/2023 VAGIN ITIS PLUS STD PANEL chlamydia trachomatis CT neg negati ve normal This repor t is inten ded for us in clini timoteo monit oring and manag ement of fatemeh reynoso. It is not inten ded for use in medic al-le gal appli catio n. Not Available [address], [address], 12/24/2023 13:29:36 12/22/19 24 12/24/2023 VAGIN ITIS PLUS STD PANEL neisseria gonorrhoeae GC neg negati ve normal This repor t is inten ded for us in clini timoteo monit oring and manag ement of fatemeh reynoso. It is not inten ded for use in medic al-le gal appli catio n. Not Available [facility] [address] [facility], [place], [address], 12/24/2023 13:29:36 12/22/19 24 12/22/2023 urina lysis , dipst ick Leukocytes Negati ve Not Available [facility] [address], [place], [address], 12/22/2023 10:52:25 12/22/19 24 12/22/2023 urina lysis , dipst ick Nitrite negati ve Not Available [facility] [address], [place], [address], 12/22/2023 10:52:25 12/22/19 24 12/22/2023 urina lysis , dipst ick Protein Negati ve Not Available [facility] [address], [place], [address], 12/22/2023 10:52:25 12/22/19 24 12/22/2023 urina lysis , dipst ick pH 7.0 Not Available [facility] [address], [place], [address], 12/22/2023 10:52:25 12/22/19 24 12/22/2023 urina lysis , dipst ick Blood Negati ve Not Available [facility] [address], [place], [address], 12/22/2023 10:52:25 12/22/19 24 12/22/2023 urina lysis , dipst ick Specific Anchor 1.015 Not Available [facility] [address], [place], [address], 12/22/2023 10:52:25 12/22/19 24 12/22/2023 urina lysis , dipst ick Ketone Negati ve Not Available [address], [place], [address], 12/22/2023 10:52:25 12/22/19 24 12/22/2023 urina lysis , dipst ick Bilirubin Negati ve Not Available [address], [place], [address], 12/22/2023 10:52:25 12/22/19 24 12/22/2023 urina lysis , dipst ick Glucose Negati ve Not Available [address], [place], [address], 12/22/2023 10:52:25 12/22/19 24 12/22/2023 urina lysis , dipst ick Appearance Clear Not Available [address], [place], [address], 12/22/2023 10:52:25 12/22/19 24 12/22/2023 urina lysis , dipst ick Color Dark Yellow Not Available [address], [place], [address], 12/22/2023 10:52:25 01/12/20 24 01/15/2024 VAGIN ITIS PLUS STD PANEL bacterial vaginosis BV neg negati ve normal Not Available [facility] [address] [place], [address], 01/16/2024 09:27:28 01/12/20 24 01/15/2024 VAGIN ITIS PLUS STD PANEL mihir species C. spp neg negati ve normal Not Available [facility] [address] [place], [address], 01/16/2024 09:27:28 01/12/20 24 01/15/2024 VAGIN ITIS PLUS STD PANEL mihir glabrata C. gla neg negati ve normal Not Available [address], [address], 01/16/2024 09:27:28 01/12/20 24 01/15/2024 VAGIN ITIS PLUS STD PANEL trichomonas vaginalis CV/TV TRICH neg negati ve normal Not Available [address], [address], 01/16/2024 09:27:28 01/12/20 24 01/15/2024 VAGIN ITIS PLUS STD PANEL chlamydia trachomatis CT neg negati ve normal This repor t is inten ded for us in clini timoteo monit oring and manag ement of patie nts. It is not inten ded for use in medic al-le gal appli catio n. Not Available [address], [address], 01/16/2024 09:27:28 01/12/20 24 01/15/2024 VAGIN ITIS PLUS STD PANEL neisseria gonorrhoeae GC neg negati ve normal This repor t is inten ded for us in clini timoteo monit oring and manag ement of patie nts. It is not inten ded for use in medic al-le gal appli catio n. Not Available [address], [address], 01/16/2024 09:27:28 04/30/19 22 04/26/2021 US, trans vagin al No observ ation record ed. [email or web address] [address], [place], [address], 04/30/2021 16:23:34 04/30/19 22 04/30/2021 US, trans vagin al No observ ation record ed. [email or web address] [address], [place], [address], 04/30/2021 19:15:08 04/05/20 22 04/03/2022 US, trans vagin al No observ ation record ed. [email or web address] [address], [place], [address], 04/09/2022 12:30:44 01/12/20 24 01/12/2024 US, trans vagin al No observ ation record ed. [email or web address] [address], [place], [address], 2024 11:31:16 Result Notes None recorded. Problems No Known Problems Procedures Surgical History Date Name Laterality Status Provider Name and Address Organization Details Recorded Time Date of Last Pap Smear completed Mireille Desouza [employer] [facility] 12/22/2023 10:42:33 022 IUD Insertion completed Wendy Bhatia MD [address] [place], [address], [facility] 04/30/2021 19:10:08 022 Mirena IUD Removal completed HARRISON COLLINS CNM [address] [place], [address], [place] [facility] 04/26/2021 20:39:32 022 IUD Insertion completed Becki Flores [facility] 04/26/2021 17:01:36 delivery completed Mireille Deo [employer] [facility] 12/22/2023 10:44:51 appendectomy completed Ember Pietrusiak [facility] 04/15/2021 19:18:25 cholecystectomy completed Ember Pietrusia k [facility] 04/15/2021 19:18:45 Imaging Results Imaging Date Name Status LastModified by Organization Details LastModified Time 04/26/2021 US, transvaginal completed [email or web address] [address], [place], [address], 04/30/2021 16:23:34 04/30/2021 US, transvaginal completed [email or web address] [address], [place], [address], 04/30/2021 19:15:08 04/03/2022 US, transvaginal completed [email or web address] [address], [place], [address], 04/09/2022 12:30:44 01/12/2024 US, transvaginal completed [email or web address] [address], [place], [address], 2024 11:31:16 Procedure Notes None recorded. Medical Equipment None Reported. Allergies No known drug allergies Medications Name Sig Start Date Stop Date Status Note LastModified by Organization Details LastModified Time amoxicill in 500 mg capsule 02/27 completed Not Available Not Available Not Available Mirena 21 mcg/24 hr (up to 8 years) 52 mg intrauter ine device Take 1 device by intraute rine route. 2021 active Not Available Not Available Not Avai lable doxycycli ne hyclate 100 mg capsule Take 1 capsule twice a day by oral route for 10 days. 12/21 completed Not Available Not Available Not Available Carafate 1 gram tablet take 1 table by mouth qid prn 07/15 completed Carafate 1gm Tablets RxNorm: 969353 Allow Substitu tion: True Refill Denied: No Not Available Not Available Not Available ibuprofen 800 mg tablet TAKE 1 TABLET BY MOUTH THREE TIMES DAILY 03/04 completed Not Available Not Available Not Available Lidocaine Viscous 2 % mucosal solution 04/03 completed Not Available Not Available Not Available sumatript an 100 mg tablet TAKE 1 TABLET AT THE ONSET OF MIGRAINE HEADACHE MAY REPEAT ONE TABLET ONLY AFTER 2 HOURS. MAX 2 TABLETS IN 24 HOURS PERIOD 04/03 completed Not Available Not Available Not Available prednison e 20 mg tablet 04/03 completed Not Available Not Available Not Available rizatript an 10 mg tablet TAKE ONE TABLET BY MOUTH AT ONSET OF MIGRAINE . IF SYMPTOMS PERSIST, A SECOND DOSE MAY BE TAKEN IN 2 HOURS. DO NOT EXCEED 3 DOSES (30 MG) DAILY AND DO NOT USE MORE THAN 10 DAYS PER MONTH 03/04 completed Not Available Not Available Not Available Zantac 300 mg tablet 1 tab PO BID 06/01 completed Zantac 150mg Tablet RxNorm: 597991 Allow Substitu tion: True Refill Denied: No Not Available Not Available Not Available Diflucan 150 mg tablet 1 tablet po every 3 days x 2 doses 2023 active Not Available Not Available Not Avai lable metronida zole 500 mg tablet 1 tablet by mouth every 12 hours x 7 days 01/11 completed Not Available Not Available Not Available Tamiflu 75 mg capsule Take 1 capsule( s) by mouth daily for 10 days 06/30 completed Tamiflu 75mg Capsules RxNorm: 382753 Allow Substitu tion: True Refill Denied: No Not Available Not Available Not Available Reglan 10 mg tablet 1 po q 6 hours as needed for nausea 02/05 completed Reglan 10mg Tablet RxNorm: 138050 Allow Substitu tion: True Refill Denied: No Not Available Not Available Not Available ondansetr on 8 mg disintegr ating tablet DISSOLVE 1 TABLET IN MOUTH EVERY 8 HOURS NEEDED 03/04 completed Not Available Not Available Not Available Vitamin tablet Take 1 tab by mouth daily. 12/02 completed Multivit hoover Tablet Allow Substitu tion: True Refill Denied: No Not Available Not Available Not Available Zofran 4 mg tablet 1 tablet by mouth every 6 hours as needed for nausea 03/05 completed Zofran 4mg Tablet RxNorm: 281039 Allow Substitu tion: True Refill Denied: No Not Available Not Available Not Available oxycodone -acetamin ophen 5 mg-325 mg tablet 02/27 completed Not Available Not Available Not Available propranol ol 40 mg tablet TAKE 1 TABLET BY MOUTH TWICE DAILY 12/21 completed Not Available Not Available Not Available amoxicill in 875 mg tablet 02/27 completed Not Available Not Available Not Available famotidin e 20 mg tablet Take 1 tablet by mouth twice daily 05/09/ 2023 active Not Available Not Available Not Avai lable estradiol 1 mg tablet Take 1 tablet every day by oral route. 12/21 completed Not Available Not Available Not Available amitripty line 10 mg tablet 12/21 completed Not Available Not Available Not Available naproxen sodium 550 mg tablet TAKE 1 TABLET BY MOUTH EVERY 12 HOURS NEEDED 03/04 completed Not Available Not Available Not Available triamcino lone acetonide 0.1 % topical ointment APPLY OINTMENT TOPICALL Y TO AFFECTED AREA TWICE DAILY 04/03 completed Not Available Not Available Not Available ursodiol 300 mg capsule take 1 capsule (300 mg) by oral route 3 times per day 02/27 completed ursodioL 300 mg oral capsule RxNorm: 144644 Allow Substitu tion: True Refill Denied: No Edited by: Tom weaver, Mamie ) on 01/03/20 Stopped by: Mamie Engle ) on Not Available Not Available Not Available docusate sodium 100 mg capsule 02/27 completed Not Available Not Available Not Available albuterol sulfate HFA 90 mcg/actua tion aerosol inhaler 02/27 completed Not Available Not Available Not Available propranol ol 20 mg tablet TAKE 1 TABLET BY MOUTH ONCE DAILY FOR 30 DAYS 04/03 completed Not Available Not Available Not Available Jessica 0.35 mg tablet 1 po qd 12/13 completed Jessica 0.35mg Tablet RxNorm: 796455 Allow Substitu tion: True Refill Denied: No Not Available Not Available Not Available nitrofura ntoin monohydra te/macroc rystals 100 mg capsule 04/16 completed Not Available Not Available Not Available One-A-Day Womens Formula active Not Available Not Available Not Available Vitamins 1 tab po daily 02/27 completed Vitamins Allow Substitu tion: True Refill Denied: No Refill DateOccu rred: 01/05/20 Edited by: Trinidad Becerra ) on 01/05/20 21 Stopped by: Trinidad Becerra ) on Not Available Not Available Not Available Benadryl Allergy 12/25 completed Benadryl Allergy RxNorm: 415237 Allow Substitu tion: False Refill Denied: No Refill DateOccu rred: 12/22/19 Edited by: Dee Dee Gallegos ) on 12/26/19 Stopped by: franklyn(Dee Dee Souza ) on 12/26/19 21 Not Available Not Available Not Available famotidin e 04/16 completed famotidi ne RxNorm: 6528846 Allow Substitu tion: False Refill Denied: No Refill DateOccu rred: 12/22/19 Edited by: james( Florencia Burton h ) on 12/22/19 Stopped by: Florencia Pelaez ) on Not Available Not Available Not Available Tums 08/10 completed Tums RxNorm: 0 Allow Substitu tion: True Refill Denied: No Refill Note: No cancel reason selected Refill DateOccu rred: 10/30/19 Not Available Not Available Not Available Mirena 03/04 completed SN: [id number] Not Available Not Available Not Available Sleep Aid 08/10 completed Sleep aid RxNorm: 0 Allow Substitu tion: True Refill Denied: No Refill Note: No cancel reason selected Refill DateOccu rred: 10/30/19 Not Available Not Available Not Available FeroSul 325 mg (65 mg iron) tablet 04/26 completed Not Available Not Available Not Available 28 mg iron-800 mcg tablet 1 po daily 04/26 completed 28 mg iron- 800 mcg oral tablet Allow Substitu tion: True Refill Denied: No Edited by: hmussema nn(Trinidad Victor ) on 01/05/20 Stopped by: hmpedroema trixie(Trinidad Victor ) on Not Available Not Available Not Available Classic 28 mg iron-800 mcg tablet TAKE 1 TABLET BY MOUTH ONCE DAILY 12/21 completed Not Available Not Available Not Available Emgality Pen 120 mg/mL subcutane ous pen injector Inject by subcutan eous route. active Not Available Not Available No t Available Ubrelvy 50 mg tablet Take by oral route. active Not Available Not Available No t Available Vitals Date Recorded Body height Provider Name an d Address Organization Details Last Updated DateTime 04/30/2021 180.34 cm Wendy Bhatia MD [address] [place], [address], [place] [employer] 04/30/2021 15:30:58 Date Recorded Body height Body mass index (BMI) Body weight Systolic blood pressure Diastolic blood pressure Provider Name and Address Organization Details Last Updated DateTime 03/04/2022 180.34 cm 42 kg/m2 270442.3 g 120 mm[Hg] 80 mm[Hg] Brie Lorenz [place] [facility] 2 16:37:21 Date Recorded Body height Body mass index (BMI) Body weight Body temperature Provider Name and Address Organization Details Last Updated DateTime 04/03/2022 180.34 cm 41.8 kg/m2 656296.71 g 97.4 [degF] Elsa Jha [place] [facility] 04/03/2022 15:08:57 Date Recorded Body height Body mass index (BMI) Body weight Systolic blood pressure Diastolic blood pressure Provider Name and Address Organization Details Last Updated DateTime 12/22/2023 180.34 cm 38.2 kg/m2 561320. 31 g 120 mm[Hg] 80 mm[Hg] Mireille Desouza [place] [facility] 4 10:46:39 Date Recorded Body height Body mass index (BMI) Body weight Body temperature Systolic blood pressure Diastolic blood pressure Provider Name and Address Organization Details Last Updated DateTime 4 180.34 cm 38.3 kg/m2 666258. 18 g 97.8 [degF] 122 mm[Hg] 76 mm[Hg] Kemialysa Nicoleell [place] [facility] 4 16:53:41 Social History Question Answer Notes LastModified by Organizat ion Details LastModified Time Tobacco Smoking Status Never Smoker Mireille Desouza null, [employer] [facility] 12/22/2023 10:44:39 What Is Your Level Of Alcohol Consumption? None Information not available 12/22/2023 If You Are , What Was Your Level Of Alcohol Consumption Prior To ? None Information not available 12/22/2023 Are You Blind Or Do You Have Difficulty Seeing? No Information not available 12/22/2023 Are You Deaf Or Do You Have Serious Difficulty Hearing? No Information not available 12/22/2023 What Type Of Diet Are You Following? REGULAR Information not available 12/22/2023 Which Illicit Or Recreational Drugs Have You Used? Marijuana Information not available 12/22/2023 How Many Children Do You Have? 2 Information not available 12/22/2023 What Is Your Relationship Status? Information not available 04/16/2021 Are You Sexually Active? Yes Information not available 04/16/2021 Do You Use Any Illicit Or Recreational Drugs? Yes Information not available 12/22/2023 Have You Used IV Drugs? No Information not available 12/22/2023 Do You Or Have You Ever Used Any Other Forms Of Tobacco Or Nicotine? No Information not available 12/22/2023 Sex: Unknown Functional Status Question Answer Note LastModified by Organization D etails LastModified Time What is your exercise level? Moderate Information not available 12/22/2023 Mental Status None recorded. Family History Relationship Description Onset Age of this Age Resolved Age Notes LastModified by Organization Details LastModified Time Maternal Grandmother Malignant tumor of breast [email or web address] Not available 05/2021 19:17:19 Maternal Grandmother Hypertensive disorder [email or web address] Not available 05/2021 19:18:02 Maternal Grandfather Malignant tumor of colon dpietrusiak Not available 05/2021 19:17:27 Maternal Grandfather Malignant tumor of prostate dpietrusiak Not available 05/2021 19:17:38 Father Type 2 diabetes mellitus dpietrusiak Not available 05/2021 19:17:49 Mother Hypertensive disorder dpietrusiak Not available 05/2021 19:18:02 Medical History Condition Response Headaches/migraines Y Gynecological History Statement/Question Response Date of Last Colonoscopy Date of last HPV 03/04/2022 Date of LMP 10/21/2023 Most Recent Bone Density Date of Last Pap Smear 03/04/2022 Most Recent Mammogram Current Control Method IUD Age at Menarche 14 Obstetrics History GPAL:G 2 P 2 0 0 2 Type Value Full Term 2 Living 2 Total 2 Past Encounters Encounter ID Performer Location Encounter Start Date Encounter Closed Date Diagnosis/Indication Diagnosis SNOMED-CT Code Diagnosis ICD10 Code Diagnosis Note [id number] HARRISON COLLINS CNM [facility] [address] [place] [address] 02/27/2021 11:53:26 02/27/2021 13:53:16 Surgical incision wound of skin 1974008182 00 R23.8 Dressing clean dry and intact. Removed today. NO concerns or s/s of infection. Discussed precaution s. Maternal p ostpartum depression screening 1504234314 37564 Z13.32 EPDS today [id number] HARRISON COLLINS CNM [facility] [address] [place] [address] 04/16/2021 14:48:10 04/16/2021 15:49:31 state 12102112 Z39.2 31 y.o. here for PP visit. - PNV while at reproducti ve age - Restart exercise as tolerated - OK to resume sexual activity, discussed lubricants prn - No s/sx depression , screen NEG, feelings of sadness related to mothers . - Discussed minimum interpregn hakeem interval of 12-18 months to reduce negative outcomes. Denies desire for future pregnancie s. - Contracept ion: Discussed options including POPs, Nexplanon, hormonal and copper IUDs. Discussed risks, efficacy, noncontrac eptive benefits, and side effects of each option, including risk of VTE with hormonal contracept ion and uterine perforatio n, expulsion, infection with IUD. Will schedule hormonal IUD insertion for next week r/t history of heavy periods. - RTC next week for IUD placement. Menorrhagia 001418100 N9 2.0 Discussed causes of abnormal uterine bleeding, including structural (polyps, fibroids), hormonal including anovulatio n, hyperplasi a, and rarely cancer. Reviewed evaluation with pelvic US and endometria l biopsy. Briefly discussed options available for treatment depending on the results of evaluation including hormonal options (OCPs, progestins , Mirena), endometria l ablation, and other surgery. Plans IUD. [id number] HARRISON COLLINS CNM [facility] [address] [place] [address] 04/26/2021 15:18:20 04/26/2021 20:40:37 Insertion of intrauterine contraceptive device 27531164 Z30.430 IUD inserted with complicate d placement r/t anteverted uterus. sounded to 7cm. TVUS after to confirm placement showed IUD within cervix. removed at that time. Pt unable to tolerate repeat procedure due to discomfort with speculum exam and suggested to reschedule with possible US guidance. Scheduled with Dr. Bhatia 04/30. for second attempt Vaginitis 30728857 N76.0 Gynecologi c examination 72848406 Z01.629 [id number] Wendy Bhatia MD [address] [place] [address] 04/30/2021 14:39:46 04/30/2021 19:11:54 Insertion of intrauterine contraceptive device 22265481 Z30.145 [id number] OSWALD Mitchell [address] [address] 03/04/2022 16:24:29 03/04/2022 20:52:33 Vaginal discharge 851412363 N89.8 32y.o. with vaginitis sx - Vaginitis cx obtained - Reviewed vulvar hygiene: avoid tight or moist clothing, soaps, Vagisil and other wipes, cotton underwear only and sleep without, unscented detergent - Discussed potential for Rephresh gel if neg test - Start probiotic - RTO for annual or as needed Irregular periods 755057 07 N92.6 Discussed all options both hormonal and surgical to alleviate her sx. She is interested in surgical interventi on. She is certain she does not want a future . Will schedule pelvic u/s as well as consult with to discuss further. MERY sent Surveillan ce of contraception 151711090 Z30.40 IUD strings visible. Due to irregular bleeding with previous control methods, as well as current IUD would like to consider surgical interventi on Screening for malignant neoplasm of cervix 826555390 Z12.4 ASCCP guidelines reviewed with pt. Pap collected and sent. Further POC pending lab result review. Pt states understand ing of POC. Infection screening 2437 01598 Z11.9 [id number] KIMBERLY FORRESTER, [facility] [address] [place] [address] 04/03/2022 14:33:28 04/30/2022 11:05:33 Irregular periods 92695426 N92.6 32 yo with Mirena IUD in place and irregular bleeding. US demonstrat ed IUD in proper placement, without polyp, fibroid. Thin endometria l lining.Behzad l try 2 week treatment of Doxycyclin e and Estradiol. [id number] MARY SORENSEN, VOCATIONAL TRAINING DIRECTOR [facility] [address] [place] [address] 12/22/2023 10:07:18 12/22/2023 15:07:56 Intrauterine contraceptive device in situ 191819644 Z30.431 33 y.o. presenting for IUD follow up visit.- IUD in placed 04/2021 and was a difficult insertion per patient- Reviewed efficacy, common side effects including spotting for first several months especially , rare hormonal sx, amenorrhea in approx 1/3 of patients. All questions answered.- Aware that contracept bernardino benefits are FDA approved 8 years- Reviewed need for barrier method for STI prevention - Pap 03/04/2022 NILM, HPV neg- RTO for TVUS to assess IUD- PA case sent Greater than thirty minutes spent with patient in consultati on (>50% face-to-fa ce). Patient labs and notes were reviewed. Patient questions were answered. Additional patient care was coordinate d. Pain in pelvis 42216669 R10.2 Urinary tr act infectious disease 42239928 N39.0 Pt comes in today with complaints /concern for UTI. S/S:Freque nt urinationF eeling the need to urinate despite having an empty bladderInc ontinence POCSure SwabUrine CultureDip : unremarkab le Menstrual spotting 41107 05 N92.0 Pt comes in with AUB. --Discusse d the various causes of abnormal uterine bleeding. Including: polyps, fibroids, hyperplasi a, atypia, anovulatio n, etc.--Shif ting of IUD can also be a cause. Strings visualized today on exam.--Dis cussed running test to r/o infection as cause of cramping and spotting. POCSure SwabRTC- TVUS PA case sent Genuine st ress incontinence 12930594 N39.3 [id number] OSWALD SEAY-[facility] h [address] [place] [address] 01/12/2024 16:26:32 2024 12:12:03 Intrauterine contraceptive device in situ 562511335 Z30.431 IUD within ECSmall hemmorhagi c cyst noted, no follow up needed Candidiasis of vagina 72 238499 B37.31 Approximat mahin thirty minutes spent with patient in consultati on (>50% face-to-fa ce). Patient labs and notes were reviewed. Patient questions were answered. Additional patient care was coordinate d. Health Concerns Section Related Observation LastModified by Organization Detai ls LastModified Time None Recorded Concern Status LastModified by Organization Details LastModified Time None Recorded Advance Directives Directive None Recorded Payers Encounter Date Sequence Insurance Name Policy Number Policy Mcarthur Covered Member ID Mcarthur Member ID Guarantor Name 04/30/2021 1 [employer] [place] [id number] Mireille L Ding [id number] Mireille L Ding 03/04/2022 1 [employer] [place] [id number] Mireille L Ding [id number] Mireille L Ding 04/03/2022 1 [employer] [place] [id number] Mireille L Ding [id number] Mireille L Ding 12/22/2023 1 [employer] [place] [id number] Mireille L Ding [id number] Mireille L Ding 01/12/2024 1 [employer] [place] [id number] Mireille L Ding [id number] Mireille L Ding Notes Date Note Type Note Provider Name and Address Organization Details Recorded Time 04/30/2021 text/html Mireille is coming in to follow up from her visit last week with Bettye where there was a difficult placement of Mirena IUD. The IUD was found to be in the cervix and was therefore removed. She does desire the Mirena to be placed and requests that I try to place it. She states that her cervix is high up and tilted Wendy Bhatia MD [address] [place] [address], [place], [address], [facility] [employer] [facility] 04/30/2021 19:11:06 03/04/2022 text/html Mireille presents today for multiple complaints. She is currently experiencing vaginal discharge and odor. Last week she used OTC Monistat and developed external redness and itching. She was rx'd Triamcinolone and this has helped her sx. Since her sx did not improve, she was seen at Urgent Care 5 days ago and rx'd Diflucan x 1, as well as Flagyl PO x 7 days. She is on day 4 of her Flagyl and finished her Diflucan. Her sx have only mildly improved. She states her GC/CT was negative at her recent visit. Her last pap was 04/26/21 Unsatisfactory. Prior to this her last pap was in 2018. She has a hx of abnormal paps. She had a Mirena IUD inserted 04/30/2021. She is currently experiencing btb with it. She has used OCP's, as well as contraceptive patch in the past and discontinued d/t side effects. She is certain she is done having children and would like to consider hysterectomy. OSWALD Mitchell [address] [place] [address], [place], [address], [facility] [employer] HE[facility] IV 03/04/2022 20:52:26 04/03/2022 text/html Pt with irregula r bleeding with IUD in place. US today demonstrates IUD in place, no polyps, no fibroids, no endometrial thickening. KIMBERLY FORRESTER DO [facility], [place], [address], [facility] [employer] 04/16/2022 19:46:24 12/22/2023 text/html Patient c/o vagi nal discharge and urinary urgency and some incontinence as well as frequency. Patient states she will be standing in the kitchen and will just leak urine. Patient states something is off. Patient states she is bleeding more often than usual. Spotting at times. Patient also states she is cramping often. MARY SORENSEN, BLU [address] [facility], [place], [address], [facility] [employer] 12/22/2023 12:23:22 01/12/2024 text/html Mireille is here f or IUD check AUB. pt thinks she might have yeast infections from the antibiotics she was taking. She has some itchiness, discharge and irritation.She is not currently bleeding.She has no other concerns MEÑO MONAHAN, OSWALD-BC [address] [facility], [place], [address], [facility] [employer] [facility] 01/12/2024 17:13:24 OBGyn Episode Ob Episode Information Episode Created Date Number of Fetuses Patient Bloodtype Patient rh Status Prepregnancy Weight lbs Domestic Partner Domestic Partner Phone Father Name Button Breaker Status 12/22/19 24 1 CLOSED Fetus Data First Name Last Name Admitted to NICU Weight (g) Sex Living Outcome Pediatric Complications Fetus ID Race Codes Race Delivery Type 2721.55 2 M Full Term [id number] Repeat Alexsander Calculation Initial Alexsander Date Initial Exam Date Initial Exam Provider Initial Ultrasound Date Last Menstrual Period Date Ultra Sound Weeks Gestation 0 Eighteen To Twenty Week Alexsander Update Ultra Sound Date Fundal Height At Umbil Quickening Date Ultra Sound Latest Weeks Gestation Final Alexsander Confirmed By Final Alexsander Confirmed Date Final Alexsander Date Ultra Sound Latest Days Gestation 0 0 Menstrual History Last Menstrual Date Menses Monthly On Bcp Conception Prior Menses Frequency Hcg Plus Date Menarche Onset Age Delivery Information Delivery Date Delivery Type Labor Anesthesia Weeks Gestation Incision Type Labor Labor Length Hrs Delivered By Post Complications Tubal Sterilization Discharge Date Comments 1 Discharge Information Feeding Method Contraceptive Method Maternal HG B and HCT Levels Ob Episode Information Episode Created Date Number of Fetuses Patient Bloodtype Patient rh Status Prepregnancy Weight lbs Domestic Partner Domestic Partner Phone Father Name Button Breaker Status 02/27/20 21 1 CLOSED Fetus Data First Name Last Name Admitted to NICU Weight (g) Sex Living Outcome Pediatric Complications Fetus ID Race Codes Race Delivery Type 2891.64 9 F Full Term [id number] Alexsander Calculation Initial Alexsander Date Initial Exam Date Initial Exam Provider Initial Ultrasound Date Last Menstrual Period Date Ultra Sound Weeks Gestation 0 Eighteen To Twenty Week Alexsander Update Ultra Sound Date Fundal Height At Umbil Quickening Date Ultra Sound Latest Weeks Gestation Final Alexsander Confirmed By Final Alexsander Confirmed Date Final Alexsander Date Ultra Sound Latest Days Gestation 0 0 Menstrual History Last Menstrual Date Menses Monthly On Bcp Conception Prior Menses Frequency Hcg Plus Date Menarche Onset Age Delivery Information Delivery Date Delivery Type Labor Anesthesia Weeks Gestation Incision Type Labor Labor Length Hrs Delivered By Post Complications Tubal Sterilization Discharge Date Comments 8 Discharge Information Feeding Method Contraceptive Method Maternal HG B and HCT Levels
--- OUTSIDE RECORDS SUMMARY | 2024-07-06 11:49 | XMS_ITS | Referral Summary ---
Author Organization [facility] Address [address] [place] [address] Phone Care Team Providers Care Supervisor Telephone Information Name Role Phone Kisha Black MD Primary Care Provide r Encounters Date Type Department Care Team Description 06/15/[address] [facility] Neurology [address] [place] [address] Kacie Naidu NP Prior Auth (Ubrelvy 100mg//Emgality 100mg) from Last 3 Months Allergies No known active allergies Medications famotidine (PEPCID) 20 mg tablet Take 1 tablet (20 mg total) by mouth 2 (two) times a day Active propranoloL (INDERAL) 40 mg tablet Take 1 tablet (40 mg total) by mouth 3 (three) times a day Active amitriptyline (ELAVIL) 25 mg tablet Take 1 tablet (25 mg total) by mouth nightly Active iron,carbonyl- vitamin C 65 mg iron- 125 mg tablet,delayed release (DR/EC) Take by mouth Active rizatriptan (MAXALT) 10 mg tabletIndicati ons:Migraine Take 1 tablet (10 mg total) by mouth once as needed for migraine May repeat in 2 hours if unresolved. Do not exceed 30 mg in 24 hours. Active vit no.126-iron-fo lic (Classic ) 28 mg iron- 800 mcg tablet Classic 28 mg iron-800 mcg tablet Active estradioL (ESTRACE) 1 mg tablet estradiol 1 mg tablet Active levonorgestreL (Mirena) IUD Mirena 21 mcg/24 hours (8 yrs) 52 mg intrauterine device Take 1 device by intrauterine route. Active lidocaine viscous (lidocaine) 2 % solution Take 15 mL by mouth every 4 (four) hours as needed 2 Active amitriptyline (ELAVIL) 10 mg tablet amitriptyline 10 mg tablet Active famotidine (PEPCID) 20 mg tablet famotidine 20 mg tablet Take 1 tablet by mouth twice daily Active propranoloL (INDERAL) 20 mg tablet propranolol 20 mg tablet TAKE 1 TABLET BY MOUTH ONCE DAILY FOR 30 DAYS Active propranoloL (INDERAL) 40 mg tablet propranolol 40 mg tablet TAKE 1 TABLET BY MOUTH TWICE DAILY Active doxycycline (doxycycline hyclate) 100 mg capsule doxycycline hyclate 100 mg capsule Active galcanezumab-g nlm (Emgality Pen) 120 mg/mL pen injectorIndica tions:Migraine Prevention Inject 120 mg under the skin every 30 (thirty) days 1 mL 11 4 025 Active Problems Problem Noted Date Diagnosed Date Microcytic anemia 02/19/2021 Cholestasis during 02/15/2021 Labor and delivery indication for care or interv ention 06/01/2017 Social History Tobacco Use Types Packs/Day Years Used Date Smoking Tobacco: Never Passive Smoke Exposure: Never Smokeless Tobacco: Never Personal Safety Answer Date Recorded Getting School Help Needed Not on file 03/28 Comments Unknown Sex and Gender Information Value Date Recorded Sex Assigned at Not on file Legal Sex Female 12:15 AM [employer]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[employer] Gender Identity Not on file Sexual Orientation Not on file Last Filed Vital Signs Vital Sign Reading Time Taken Comments Blood Pressure 130/80 05/14/2023 10:55 AM FARM SPECIALIST Pulse 102 03/03/2023 11:32 AM FARM SPECIALIST Temperature 36.6 C (97.8 F) 08/27/2022 1:22 PM CDT Respiratory Rate 20 08/27/2022 1:22 PM CDT Oxygen Saturation 98% 03/03/2023 11:32 AM FARM SPECIALIST Inhaled Oxygen Concentration - - Weight 142 kg (313 lb) 05/14/2023 10:55 AM FARM SPECIALIST Height 177.8 cm (5' 10 ) 05/14/2023 10:55 AM FARM SPECIALIST Body Mass Index 44.91 05/14/2023 10:55 AM FARM SPECIALIST Plan of Treatment Not on file Insurance [facility] Care Teams Supervisor Telephone Information Relationship Specialty Start Date End Date Kisha Black MD PCP - General Family Medicine 07/19/22
--- OUTSIDE RECORDS SUMMARY | 2024-07-06 11:49 | XMS_ITS | Clinical Summary ---
Author Organization [facility] Address [address] [place] [address] Care Team Providers Care Supervisor Frame Sample And Pattern Name Role Phone Kisha Black MD Primary Care Provider [phone] Allergies No known active allergies Medications vitamin, low iron, 27-0.8 MG tablet Take 1 tablet by mouth daily. Active famotidine 20 MG tablet Take 20 mg by mouth 2 (two) times daily. Active propranolol (INDERAL) 20 MG tablet propranolol 20 mg tablet TAKE 1 TABLET BY MOUTH ONCE DAILY FOR 30 DAYS Active lidocaine viscous (XYLOCAINE) 2 % solution Take 15 mLs by mouth every 4 (four) hours as needed for Pain. May dilute in 30 CC of water and swish, gargle, and spit. 200 mL 2 Active Active Problems Problem Noted Date Diagnosed Date S/P section 02/19/2021 Microcytic anemia 02/19/2021 Cholestasis during ([facility]) Encounter for routine follow-up ([facility]) 06/05/2017 Labor and delivery indicatio n for care or intervention ([facility]) 06/01/2017 Family History Medical History Relation Comments Diabetes Father Cancer Maternal Grandfather Cancer Maternal Grandmother Hypertension Maternal Grandmother Arthritis Mother Depression Mother Hypertension Mother Stroke Paternal Grandfather Relation Status Comments Father Alive Maternal Grandfather Maternal Grandmother Mother Paternal Grandfather Social History Tobacco Use Types Packs/Day Years Used Date Smoking Tobacco: Never Smokeless Tobacco: Never Alcohol Use Standard Drinks/Week Comments Not Currently 0 (1 standard drink = 0.6 oz pur e alcohol) Depression Answer Date Recor ded Last EPDS Total Score 8 02/18/2021 Last EPDS Self Harm Result 02/18 Comments No Sex and Gender Information Value Date Recorded Sex Assigned at Not on file Legal Sex Female 4:03 PM CDT Gender Identity Not on file Sexual Orientation Not on file Last Filed Vital Signs Vital Sign Reading Time Taken Comments Blood Pressure 127/78 04/01/2022 7:01 PM SOLDER CREAM MAKER Pulse 95 04/01/2022 7:01 PM SOLDER CREAM MAKER Temperature 36.3 C (97.3 F) 04/01/2022 4:27 PM SOLDER CREAM MAKER Respiratory Rate 18 04/01/2022 7:01 PM SOLDER CREAM MAKER Oxygen Saturation 94% 04/01/2022 7:01 PM SOLDER CREAM MAKER Inhaled Oxygen Concentration - - Weight 136.1 kg (300 lb) 04/01/2022 4:27 PM SOLDER CREAM MAKER Height 179.1 cm (5' 10.5 ) 04/01/2022 4:27 PM CS T Body Mass Index 42.44 04/01/2022 4:27 PM SOLDER CREAM MAKER Plan of Treatment Health Maintenance Due Date Last Done Comments Cervical Cancer Screening Pap Smear (Age 30 to 64) Every 3 Years 1989 Annual Physical 01/14/1992 Hepatitis C 2007 DTaP, Tdap and Td Vaccines (1 - Tdap) 01/14/2008 11/12/1993, 1989, 1989, Additional history exists Hepatitis B Vaccines (1 of 3 - 19+ 3-dose series) 01/14/2008 Cervical Cancer Screening Pap with HPV Testing (Age 30 to 64) Every 5 Years 2019 Cervical Cancer Screening with HPV 2019 COVID-19 Vaccine ( season) 2023 Influenza Adult (#1) 2024 HPV Vaccines Aged Out No longer eligi ble based on patient's age to complete this topic Meningococcal B Vaccine Aged Out No l onger eligible based on patient's age to complete this topic Meningococcal Vaccine Aged Out No андрей efren eligible based on patient's age to complete this topic Pneumococcal Vaccine: Pediatrics (0 to 5 Years) and At-Risk Patients (6 to 64 Years) Aged Out No longer eligible based on patient's age to complete this topic RSV Immunizations Under 20 Months Aged Out No longer eligible based on patient's age to complete this topic Insurance [employer] Advance Directives * Full Code (Latest Code Status on File) Date Activated Date Inactivated Comments 02/17/2021 9:05 AM 02/19/2021 8:37 PM * Full Code Date Activated Date Inactivated Comments 02/15/2021 10:12 PM 02/17/2021 9:05 AM * Full Code Date Activated Date Inactivated Comments 06/03/2017 2:18 PM 06/04/2017 2:08 AM * Full Code Date Activated Date Inactivated Comments 06/01/2017 11:13 PM 06/03/2017 2:18 PM Care Teams Supervisor Frame Sample And Pattern Relationship Specialty Start Date End Date Kisha Black MD PCP - General FAMILY PRACTICE 11/19/21
--- OUTSIDE RECORDS SUMMARY | 2024-07-06 11:49 | XMS_ITS | Encounter Summary ---
Author Organization [facility] Address [address] [place] [address] Care Team Providers Care Insulation Packer Name Role Phone New Referring, Provider Primary Care Provider Un available Jimmy Rosales MD Primary Care Provider Kisha Black MD Primary Care Provider [phone] Encounter Details Date Type Department Care Team (Late st Contact Info) Description 08/30/2020 DesignWine Message [facility] Patient Accounts [address] [place] [address] [place], [facility] Provider [facility] Patient Financial Services Social History Tobacco Use Types Packs/Day Years Used Date Smoking Tobacco: Passive Smo ke Exposure - Never Smoker Smokeless Tobacco: Never Alcohol Use Standard Drinks/Week Comments No 0 (1 standard drink = 0.6 oz pur e alcohol) Comments Yes Sex and Gender Information Value Date Recorded Sex Assigned at Not on file Legal Sex Female 4:03 PM CDT Gender Identity Not on file Sexual Orientation Not on file documented as of this encounter Plan of Treatment Not on file documented as of this encounter Visit Diagnoses Not on filedocumented in this encounter Additional Health Concerns Infection Onset Date Last Indicated Resolved Time COVID-19 Rule Out 09/30/2020 09/30/2020 10/03/2020 3:46 PM CDT COVID-19 Rule Out 11/29/2020 11/29/2020 12/01/2020 1:01 AM CDT COVID-19 Rule Out 12/05/2020 12/05/2020 12/06/2020 1:43 PM CDT COVID-19 Rule Out 12/07/2020 12/07/2020 12/09/2020 1:05 AM CDT COVID-19 Confirmed 12/07/2020 12/15/2020 12:33 AM CDT COVID-19 Rule Out 04/01/2022 04/01/2022 04/01/2022 6:10 PM BODY CARE MANAGER documented as of this encounter Care Teams Insulation Packer Relationship Specialty Start Date End Date New Referring, Provider PCP - General UNKNOWN PHYSICIAN SPECIALTY 06/04/19 12/14/20 [facility] [address] [place] [phone] PCP - General FAMILY PRACTICE 12/15/20 11/18/21 Kisha Black MD 3 [facility] [address] [place] [phone] PCP - General FAMILY PRACTICE 11/19/21 documented as of this encounter
--- OUTSIDE RECORDS SUMMARY | 2024-07-06 11:49 | XMS_ITS | Encounter Summary ---
Author Organization [facility] Address [address] [place] [address] Care Team Providers Care Income Tax Auditor Name Role Phone Jimmy Rosales MD Primary Care Provider Kisha Black MD Primary Care Provider [phone] Encounter Details Date Type Department Care Team (Late st Contact Info) Description 03/09/2021 Hospital Follow-up Call [facility] [place] [address] Altagracia Marquez, RN Social History Tobacco Use Types Packs/Day Years [...] on file Sexual Orientation Not on file COVID-19 Exposure Response Date Recorded In the last month, have you been in contact with someone who was confirmed or suspected to have Coronavirus / COVID-19? No / Unsure 02/15/2021 11:42 PM CDT documented as of this encounter Functional Status * RETIRED Are you deaf or do you have serious difficulty hearing Answer Date of Assessment Author Status No 02/15/2021 11:48 PM CDT Acti ve * RETIRED Are you blind or do you have serious difficulty seeing, even when wearing glasses? Answer Date of Assessment Author Status No 02/15/2021 11:48 PM CDT Acti ve * Do you have serious difficulty walking or climbing stairs? Answer Date of Assessment Author Status No 02/15/2021 11:48 PM CDT Lisbet Robertson RN Active * Do you have difficulty dressing or bathing? Answer Date of Assessment Author Status No 02/15/2021 11:48 PM CDT Lisbet Robertson RN Active * Because of a physical, mental, or emotional condition, do you have difficulty doing errands alone such as visiting a doctor's office or shopping? Answer Date of Assessment Author Status No 02/15/2021 11:48 PM CDT Lisbet Robertson RN Active documented as of this encounter Mental Status * Because of a physical, mental, or emotional condition, do you have serious difficulty concentrating, remembering, or making decisions? Answer Entry Date Author Status No 02/15/2021 11:48 PM CDT Lisbet Robertson RN Active documented in this encounter Plan of Treatment Not on file documented as of this encounter Visit Diagnoses Not on filedocumented in this encounter Additional Health Concerns Infection Onset Date Last Indicated Resolved Time COVID-19 Rule Out 04/01/2022 04/01/2022 04/01/2022 6:10 PM COMMISSARY AGENT documented as of this encounter Care Teams Income Tax Auditor Relationship Specialty Start Date End Date [facility] Rosales [facility] [address] [place] [phone] PCP - General FAMILY PRACTICE 12/15/20 11/18/21 Kisha Black MD [facility] [address] [place] [phone] PCP - General FAMILY PRACTICE 11/19/21 documented as of this encounter
--- OUTSIDE RECORDS SUMMARY | 2024-07-06 11:49 | XMS_ITS | Clinical Summary ---
Author Organization [facility] Address [address] [place] [address] Care Team Providers Care Planer Operator / Grader Name Role Phone Unavailable Primary Care Provider Unavailabl e Source Comments [facility],non-owned Affiliates and Associated Physician Practices is amultiple site organization consisting of ambulatory clinics and hospital sitesin [place], [place], [place] and [place]. This disclosure is being madepursuant to the Care Everywhere program and may not contain all information available regarding this patient. Last updated 18.[facility] Active Problems Problem Noted Date Diagnosed Date Encounter for anatomic survey 11/09/2020 Social History Tobacco Use Types Packs/Day Years Used Date Smoking Tobacco: Never Assessed Sex and Gender Information Value Date Recorded Sex Assigned at Not on file Gender Identity Not on file Sexual Orientation Not on file Last Filed Vital Signs Vital Sign Reading Time Taken Comments Blood Pressure - - Pulse - - Temperature - - Respiratory Rate - - Oxygen Saturation - - Inhaled Oxygen Concentration - - Weight 120.7 kg (266 lb) 11/09/2020 3:34 PM CDT Height - - Body Mass Index - - Plan of Treatment Health Maintenance Due Date Last Done Comments PAP SMEAR 1989 HIV SCREENING 01/14/2004 HEPATITIS C SCREENING 01/09/2007 DTAP/TDAP/TD VACCINES (1 - Tdap) 01/14/2008 HEPATITIS B VACCINE (1 of 3 - 19+ 3-dose series) 01/14/2008 COVID-19 VACCINE ( - 2023-2 5 season) 2023 INFLUENZA VACCINE (#1) 2023 DEPRESSION SCREENING 04/14/2024 ZOSTER VACCINE (1 of 2) 2039 HIB VACCINE Aged Out No longer eligi ble based on patient's age to complete this topic HPV VACCINE Aged Out No longer eligi ble based on patient's age to complete this topic MENINGOCOCCAL (Group B) VACC INE SHARED DECISION-MAKING Aged Out No longer eligibl e based on patient's age to complete this topic MENINGOCOCCAL GROUPS A/C/Y/W VACCINE Aged Out No longer eligible b ased on patient's age to complete this topic PNEUMOCOCCAL VACCINE Aged Out No long er eligible based on patient's age to complete this topic
--- OUTSIDE RECORDS SUMMARY | 2024-07-06 11:49 | XMS_ITS | Clinical Summary ---
Author Organization [facility] Address [address] [place] [address] Phone Care Team Providers Care Air Compressor Mechanic Name Role Phone Kisha Black MD Primary Care Provide r Allergies No known active allergies Medications famotidine [...] indication for care or interv ention 06/01/2017 Encounters Date Type Department Care Team Description 06/15/2024 Telephone [facility] Medical [facility] Neurology [address] [place] [phone] Kacie Naidu NP Prior Auth (Ubrelvy 100mg//Emgality 100mg) from Last 3 Months Social History Tobacco Use Types Packs/Day Years Used Date Smoking Tobacco: Never Passive Smoke Exposure: Never Smokeless Tobacco: Never Personal Safety Answer Date Recorded Getting School Help Needed Not on file 03/28 Comments Unknown Sex and Gender Information Value Date Recorded Sex Assigned at Not on file Legal Sex Female 12:15 AM ROSIN BARREL FILLER Gender Identity Not on file Sexual Orientation Not on file Obstetrics History Last Filed Vital Signs Vital Sign Reading Time Taken Comments Blood Pressure 130/80 05/14/2023 10:55 AM ROSIN BARREL FILLER Pulse 102 03/03/2023 11:32 AM ROSIN BARREL FILLER Temperature 36.6 C (97.8 F) 08/27/2022 1:22 PM CDT Respiratory Rate 20 08/27/2022 1:22 PM CDT Oxygen Saturation 98% 03/03/2023 11:32 AM ROSIN BARREL FILLER Inhaled Oxygen Concentration - - Weight 142 kg (313 lb) 05/14/2023 10:55 AM ROSIN BARREL FILLER Height 177.8 cm (5' 10 ) 05/14/2023 10:55 AM ROSIN BARREL FILLER Body Mass Index 44.91 05/14/2023 10:55 AM ROSIN BARREL FILLER Plan of Treatment Health Maintenance Due Date Last Done Comments Cervical Cancer Screening 1989 Depression Screening 1989 Hepatitis C Screening 1989 Varicella Vaccines (1 of 2 - 13+ 2-dose series) 2002 DTaP/Tdap/Td Vaccine (5 - Tdap) 11/09/2002 11/08/2002, 11/12/1993, 1989, Additional history exists Regular Well Visit/Exam 18-64 2007 Pneumococcal vaccine <65 (1 of 2 - PCV) 01/14/2008 Influenza Vaccine (#1) 2023 HPV Vaccines Aged Out No longer eligi ble based on patient's age to complete this topic Insurance [address] [place] [id number] Care Teams Air Compressor Mechanic Relationship Specialty Start Date End Date Kisha Black MD PCP - General Family Medicine 07/19/22
--- OUTSIDE RECORDS SUMMARY | 2024-07-06 11:49 | XMS_ITS | Clinical Summary ---
Author Organization [facility] Care Team Providers Care Over Short And Damage Clerk Name Role Phone Unavailable Primary Care Provider Unavailabl e Social History Tobacco Use Types Packs/Day Years Used Date Smoking Tobacco: Never Assessed Comments Unknown Sex and Gender Information Value Date Recorded Sex Assigned at Not on file Legal Sex Female 11:38 AM GAS FURNACE INSTALLER Gender Identity Not on file Sexual Orientation Not on file Plan of Treatment Health Maintenance Due Date Last Done Comments Hepatitis C Virus (HCV) Screening 1989 TdaP Immunization 1989 Pap Smear 2010 Cervical Cancer Screening (CCS) 2019 HPV/Cotest 2019 Influenza Immunization (#1) 2023 SARS-COV-2 Immunization ( season) 2023 Respiratory Syncytial Virus (RSV) Immunization (Adult) (1 - 1-dose 75+ series) 01/14/2064 Hepatitis B Immunization Completed , 11/13/1998, 10/09/1998 DTaP/Tdap/Td Immunization Discontinued 2002, 11/12/1993, 1989, Additional history exists Meningococcal Immunization (ACWY) Aged Out No longer eligible based on patient's age to complete this topic Pneumococcal Immunization Combined Aged Out No longer eligible based on patient's age to complete this topic Rotavirus Immunization Aged Out No lo nger eligible based on patient's age to complete this topic
--- OUTSIDE RECORDS SUMMARY | 2024-07-06 11:49 | XMS_ITS | Encounter Summary ---
Author Organization [facility] Healthcare Address [address] [place] [address] Care Team Providers Care Vendor Relationship Manager Name Role Phone Kisha Black MD Primary Care Provide r Reason for Visit * Reason Onset Date Comments Prior Auth 06/15/2024 Ubrelvy 100mgEmg ality 100mg Encounter Details Date Type Department Care Team (Late st Contact Info) Description 06/15/2024 Telephone [facility] Medical Group Neurology [address] [phone] Kacie Naidu COLD STORAGE SUPERINTENDENT [address] [address] Prior Auth (Ubrelvy 100mg//Emgality 100mg) Social History Tobacco Use Types Packs/Day Years Used Date Smoking Tobacco: Never Passive Smoke Exposure: Never Smokeless Tobacco: Never Personal Safety Answer Date Recorded Getting School Help Needed Not on file 03/28 Comments Unknown Sex and Gender Information Value Date Recorded Sex Assigned at Not on file Legal Sex Female 12:15 AM BAKER CHEF Gender Identity Not on file Sexual Orientation Not on file documented as of this encounter Miscellaneous Notes * Telephone Encounter - Melissa Montoya MA - 07/05/2024 2:45 PM CDT Patient no longer has coverage. * Telephone Encounter - Melissa Montoya MA - 06/15/2024 9:56 AM CST PA submitted for Emgality 120mg through [employer]. Faxed paper to [phone]. Waiting on determination R CHEF * Telephone Encounter - Melissa Montoya MA - 06/15/2024 9:51 AM CST PA submitted for Ubrelvy 100mg through [employer]. Faxed paper to [phone]. Waiting on determination R CHEF documented in this encounter Plan of Treatment Not on file documented as of this encounter Visit Diagnoses Not on filedocumented in this encounter Care Teams Vendor Relationship Manager Relationship Specialty Start Date End Date Kisha Black MD PCP - General Family Medicine 07/19/22 documented as of this encounter
== END 2024-07-06 10:50 | disposition home or self-care (01) ==
PROVIDERS: Emergency Provider Nurse Practitioner Family
DX: M54.50 Low back pain, unspecified (principal)
CPT/HCPCS: 99213; G0463

== ENCOUNTER 2024-07-06 18:42 | Emergency (ER) | payer SELFPAY ==
[2024-07-06 18:45] VITALS: BP 165/95; PULSE 92; RESP 20; TEMP 36.3; O2SAT 100
--- OUTSIDE RECORDS SUMMARY | 2024-07-06 19:09 | XMS_ITS | Clinical Summary ---
Author Organization [facility] Address [address] [place] [address] Phone Care Team Providers Care Sawsmith Name Role Phone Kisha Black MD Primary [...] Type Department Care Team Description 06/15/2024 Telephone [facility] Neurology [address] [place] [phone] Kacie Naidu NP Prior Auth (Ubrelvy [...] on file Legal Sex Female 12:15 AM DIRECT CARE STAFFER Gender Identity Not on file Sexual Orientation Not on file Obstetrics History Last Filed Vital Signs Vital Sign Reading Time Taken Comments Blood Pressure 130/80 05/14/2023 10:55 AM DIRECT CARE STAFFER Pulse 102 03/03/2023 11:32 AM DIRECT CARE STAFFER Temperature 36.6 C (97.8 F) 08/27/2022 1:22 PM CDT Respiratory Rate 20 08/27/2022 1:22 PM CDT Oxygen Saturation 98% 03/03/2023 11:32 AM DIRECT CARE STAFFER Inhaled Oxygen Concentration - - Weight 142 kg (313 lb) 05/14/2023 10:55 AM DIRECT CARE STAFFER Height 177.8 cm (5' 10 ) 05/14/2023 10:55 AM DIRECT CARE STAFFER Body Mass Index 44.91 05/14/2023 10:55 AM DIRECT CARE STAFFER Plan of Treatment Health Maintenance Due Date [...] age to complete this topic Insurance [address] [place] [id number] Care Teams Sawsmith Relationship Specialty Start Date End Date Kisha Black MD PCP - General Family Medicine 07/19/22
--- OUTSIDE RECORDS SUMMARY | 2024-07-06 19:09 | XMS_ITS | Clinical Summary ---
Author Organization [facility] Care Team Providers Care Dowel Maker Name Role Phone Unavailable Primary Care Provider Unavailabl e Social History Tobacco Use Types Packs/Day Years Used Date Smoking Tobacco: Never Assessed Comments Unknown Sex and Gender Information Value Date Recorded Sex Assigned at Not on file Legal Sex Female 11:38 AM DRUM STRAIGHTENER Gender Identity Not on file Sexual Orientation [...]
--- OUTSIDE RECORDS SUMMARY | 2024-07-06 19:09 | XMS_ITS | Encounter Summary ---
Author Organization [facility] Healthcare Address [address] [place] [address] Care Team Providers Care Painter Spring Name Role Phone Kisha Black MD Primary Care Provide r Reason for Visit * Reason Onset Date Comments Prior Auth 06/15/2024 Ubrelvy 100mgEmg ality 100mg Encounter Details Date Type Department Care Team (Late st Contact Info) Description 06/15/2024 Telephone [facility] Medical Group Neurology [address] [phone] Kacie Naidu VISUAL TRAINING AIDE [address] [address] Prior Auth (Ubrelvy 100mg//Emgality 100mg) Social History Tobacco Use Types Packs/Day Years Used Date Smoking Tobacco: Never Passive Smoke Exposure: Never Smokeless Tobacco: Never Personal Safety Answer Date Recorded Getting School Help Needed Not on file 03/28 Comments Unknown Sex and Gender Information Value Date Recorded Sex Assigned at Not on file Legal Sex Female 12:15 AM DESIGN ARCHITECT Gender Identity Not on file Sexual Orientation Not on file documented as of this encounter Miscellaneous Notes * Telephone Encounter - Melissa Montoya MA - 07/05/2024 2:45 PM CDT Patient no longer has coverage. * Telephone Encounter - Melissa Montoya MA - 06/15/2024 9:56 AM CST PA submitted for Emgality 120mg through [employer]. Faxed paper to [phone]. Waiting on determination GN ARCHITECT * Telephone Encounter - Melissa Montoya MA - 06/15/2024 9:51 AM CST PA submitted for Ubrelvy 100mg through [email or web address]. Faxed paper to [phone]. Waiting on determination GN ARCHITECT documented in this encounter Plan of Treatment Not on file documented as of this encounter Visit Diagnoses Not on filedocumented in this encounter Care Teams Painter Spring Relationship Specialty Start Date End Date Kisha Black MD PCP - General Family Medicine 07/19/22 documented as of this encounter
--- OUTSIDE RECORDS SUMMARY | 2024-07-06 19:09 | XMS_ITS | Clinical Summary ---
Author Organization [facility] Address [address] [place] [address] Care Team Providers Care Grape Cutter Name Role Phone Kisha Black MD Primary Care Provider [phone] Allergies No known active allergies Medications vitamin, [...] section 02/19/2021 Microcytic anemia 02/19/2021 Cholestasis during ([facility]) Encounter for routine follow-up ([facility]) 06/05/2017 Labor and delivery indicatio n for care or intervention ([facility]) 06/01/2017 Family History Medical History Relation Comments [...] Comments Blood Pressure 127/78 04/01/2022 7:01 PM PARAFFIN PLANT SWEATER OPERATOR Pulse 95 04/01/2022 7:01 PM PARAFFIN PLANT SWEATER OPERATOR Temperature 36.3 C (97.3 F) 04/01/2022 4:27 PM PARAFFIN PLANT SWEATER OPERATOR Respiratory Rate 18 04/01/2022 7:01 PM PARAFFIN PLANT SWEATER OPERATOR Oxygen Saturation 94% 04/01/2022 7:01 PM PARAFFIN PLANT SWEATER OPERATOR Inhaled Oxygen Concentration - - Weight 136.1 kg (300 lb) 04/01/2022 4:27 PM PARAFFIN PLANT SWEATER OPERATOR Height 179.1 cm (5' 10.5 ) 04/01/2022 4:27 PM CS T Body Mass Index 42.44 04/01/2022 4:27 PM PARAFFIN PLANT SWEATER OPERATOR Plan of Treatment Health Maintenance Due Date [...] 11:13 PM 06/03/2017 2:18 PM Care Teams Grape Cutter Relationship Specialty Start Date End Date Kisha Black MD PCP - General FAMILY PRACTICE 11/19/21
--- OUTSIDE RECORDS SUMMARY | 2024-07-06 19:09 | XMS_ITS | Clinical Summary ---
Author Organization [facility] Address [address] [place] [address] Care Team Providers Care Central Lab Technician Name Role Phone Unavailable Primary Care Provider Unavailabl e Source Comments [facility] [employer],non-owned Affiliates and Associated Physician Practices is amultiple site organization consisting of ambulatory clinics and hospital sitesin [place], [place], [place] and [place]. This disclosure is being madepursuant to the Care Everywhere program and may not contain all information available regarding this patient. Last updated 18.[facility] [employer] Active Problems Problem Noted Date Diagnosed Date [...]
--- OUTSIDE RECORDS SUMMARY | 2024-07-06 19:09 | XMS_ITS | Encounter Summary ---
Author Organization [facility] Address [address] [place] [address] Care Team Providers Care Blintze Roller Name Role Phone Jimmy Rosales MD Primary Care Provider Kisha Black MD Primary Care Provider [phone] Encounter Details Date Type Department Care Team (Late st Contact Info) Description 03/09/2021 Hospital Follow-up Call [facility] [place] [address] Altagracia Marquez, RN Social History [...] Author Status No 02/15/2021 11:48 PM CDT Lisbte Robertson RN Active * Because of a [...] Rule Out 04/01/2022 04/01/2022 04/01/2022 6:10 PM PRINTER ASSISTANT documented as of this encounter Care Teams Blintze Roller Relationship Specialty Start Date End Date Jimmy Rosales MD [facility] [address] [place] [phone] PCP - General FAMILY PRACTICE 12/15/20 11/18/21 Kisha Black MD [facility] [address] [place] [phone] PCP - General FAMILY PRACTICE 11/19/21 documented as of this encounter
--- OUTSIDE RECORDS SUMMARY | 2024-07-06 19:09 | XMS_ITS | Referral Summary ---
Author Organization [facility] Address [address] [place] [address] Phone Care Team Providers Care Forming Acid Dumper Name Role Phone Kisha Black MD Primary Care Provide r Encounters Date Type Department Care Team Description 06/15/2024 Telephone [facility] Neurology [address] [place] [address] Kacie Naidu NP Prior Auth [...] file Legal Sex Female 12:15 AM FARM MANAGEMENT AGENT Gender Identity Not on file Sexual Orientation Not on file Last Filed Vital Signs Vital Sign Reading Time Taken Comments Blood Pressure 130/80 05/14/2023 10:55 AM FARM MANAGEMENT AGENT Pulse 102 03/03/2023 11:32 AM FARM MANAGEMENT AGENT Temperature 36.6 C (97.8 F) 08/27/2022 1:22 PM CDT Respiratory Rate 20 08/27/2022 1:22 PM CDT Oxygen Saturation 98% 03/03/2023 11:32 AM FARM MANAGEMENT AGENT Inhaled Oxygen Concentration - - Weight 142 kg (313 lb) 05/14/2023 10:55 AM FARM MANAGEMENT AGENT Height 177.8 cm (5' 10 ) 05/14/2023 10:55 AM FARM MANAGEMENT AGENT Body Mass Index 44.91 05/14/2023 10:55 AM FARM MANAGEMENT AGENT Plan of Treatment Not on file Insurance [facility] Care Teams Forming Acid Dumper Relationship Specialty Start Date End Date Kisha Black MD PCP - General Family Medicine 07/19/22
--- OUTSIDE RECORDS SUMMARY | 2024-07-06 19:09 | XMS_ITS | Encounter Summary ---
Author Organization [facility] Address [address] [place] [address] Care Team Providers Care Stencil Machine Operator Name Role Phone New Referring, Provider Primary Care Provider Un available Jimmy Rosales MD Primary Care Provider Kisha Black MD Primary Care Provider [phone] Encounter Details Date Type Department Care Team (Late st Contact Info) Description 08/30/2020 [employer] Message [facility] Patient Accounts [address] [place] [address] Graph Story, [facility] Provider [facility] Patient Financial Services Social History Tobacco [...] Rule Out 04/01/2022 04/01/2022 04/01/2022 6:10 PM AC/DC REWINDER documented as of this encounter Care Teams Stencil Machine Operator Relationship Specialty Start Date End Date New Referring, Provider PCP - General UNKNOWN PHYSICIAN SPECIALTY 06/04/19 12/14/20 [facility] Rosales MD 3 [facility] [address] [place] [phone] PCP - General FAMILY PRACTICE 12/15/20 11/18/21 Kisha Black MD 3 [facility] [address] [place] [phone] PCP - General FAMILY PRACTICE 11/19/21 documented as of this encounter
--- NOTE | 2024-07-06 19:24 | ED.GENADULT ---
HPI - General Adult General Chief complaint: Back Pain/Injury Stated complaint: Back pain-Hx DJD Time Seen by Provider: 07/06/24 18:50 History of Present Illness HPI narrative: 34-year-old female with history of degenerative disc disease and sciatica present to the emergency department for evaluation for lower back pain that radiates down her right leg. Patient denies any specific incident of fall or injury. Patient denies any associated numbness or weakness. Patient denies any change in bowel or bladder habits. Patient did have follow-up with urgent care today was started on prednisone and cyclobenzaprine. Patient did start her prednisone today but also still having some pain so came in to be re-evaluated. Related Data Home Medications ?Medication ?Instructions ?Recorded ?Confirmed ?Last Taken ?Type famotidine 20 mg tablet 20 mg PO DAILY 11/04/22 02/22/24 Unknown History galcanezumab-gnlm 120 mg/mL 120 mg subcut MONTHLY 09/14/23 02/22/24 Unknown History subcutaneous pen injector (Emgality Pen) ubrogepant 100 mg tablet (Ubrelvy) 100 mg PO PRN PRN Migraine Headache 09/14/23 02/22/24 Unknown History levonorgestrel (Mirena) 1 device intrauterine ONCE 11/06/23 02/22/24 Unknown History Allergies Allergy/AdvReac Type Severity Reaction Status Date / Time No Known Allergies Allergy Verified 07/06/24 10:28 Review of Systems Review of Systems: All systems reviewed & are unremarkable except as noted in HPI and below PMFSH Past Medical History Medical History (Updated 07/06/24 @ 19:35 by Alvarado Montelongo MD) No significant past medical history Exam Narrative: APPEARANCE: Well appearing, no pain, no distress, well-nourished. HEAD: normocephalic, atraumatic. EYES: PERRLA/EOMI, conjunctivae clear. NOSE: Normal no drainage EARS:TMS clear with good light reflex. THROAT: Pharynx clear, no exudate. NECK: Supple. No adenopathy, no masses. RESPIRATORY: Airway patent, respirations nonlabored. Clear to auscultation bilaterally, no rales, rhonchi, wheezing. CARDIOVASCULAR: Regular rate and rhythm without murmurs rubs or gallops. ABDOMINAL: Soft, nontender, nondistended, normal bowel sounds MUSCULOSKELETAL: Lower back tenderness to palpation with tenderness to right buttock NEURO: Alert. Cranial nerves II through XII intact. Good gait. Good coordination Course Vital Signs Vital signs: Vital Signs Temperature 97.3 F L 07/06/24 18:45 Pulse Rate 92 07/06/24 18:45 Respiratory Rate 20 07/06/24 18:45 Blood Pressure 165/95 H 07/06/24 18:45 Pulse Oximetry 100 07/06/24 18:45 Oxygen Delivery Room Air 07/06/24 18:45 Temperature 97.3 F L 07/06/24 18:45 Pulse Rate 73 07/06/24 19:54 Respiratory Rate 18 07/06/24 19:54 Blood Pressure 165/95 H 07/06/24 18:45 Pulse Oximetry 100 07/06/24 19:54 Oxygen Delivery Room Air 07/06/24 18:45 Medical Decision Making MDM Narrative Medical decision making narrative: 34-year-old female presents emergency department for evaluation for worsening sciatica symptoms. Tramadol for pain control. Patient was already started on prednisone and cyclobenzaprine as outpatient. Patient was neurologically intact with no change in urinary or bowel symptoms. Vital Signs Vital Signs: Vital Signs Temperature 97.3 F L 07/06/24 18:45 Pulse Rate 92 07/06/24 18:45 Respiratory Rate 20 07/06/24 18:45 Blood Pressure 165/95 H 07/06/24 18:45 Pulse Oximetry 100 07/06/24 18:45 Oxygen Delivery Room Air 07/06/24 18:45 Temperature 97.3 F L 07/06/24 18:45 Pulse Rate 73 07/06/24 19:54 Respiratory Rate 18 07/06/24 19:54 Blood Pressure 165/95 H 07/06/24 18:45 Pulse Oximetry 100 07/06/24 19:54 Oxygen Delivery Room Air 07/06/24 18:45 Discharge Plan Discharge Clinical Impression: Low back pain, Sciatica Patient Disposition: Home, Self-Care Condition: Stable Instructions: Antibiotic Form, Sciatica (ED) Additional Instructions: Continue your prednisone taper as directed. Tylenol and ibuprofen for pain control. Cyclobenzaprine for muscle spasm. Tramadol as needed for additional pain control. If you have any worsening symptoms then please call or return to the emergency department. Patient Language: Yemeni Prescriptions: New tramadol 50 mg tablet 50 mg PO Q6H PRN (Reason: pain) Qty: 14 0RF No Action Mirena 21 mcg/24 hr (8 yrs) 52 mg Intrauterine Device 1 device INTRAUTERINE ONCE Rx Instructions: as a single dose cyclobenzaprine 10 mg tablet 10 mg PO TID PRN (Reason: muscle spasm) Qty: 12 0RF prednisone 20 mg tablet 20 mg PO DAILY Qty: 12 0RF Rx Instructions: take 3 tablets daily for 2 days, then 2 tablets daily for 2 days then 1 tablet daily for 2 days famotidine 20 mg tablet 20 mg PO DAILY Ubrelvy 100 mg tablet 100 mg PO PRN PRN (Reason: Migraine Headache) Emgality Pen 120 mg/mL pen injector 120 mg SUBCUT MONTHLY benzonatate 200 mg capsule 200 mg PO TID PRN (Reason: cough) 10 Days Qty: 30 0RF Follow-up/Referrals: PHYSICIAN,CONCRETE ENGINEER [Primary Care Provider] - Stand Alone Forms: Work/School Release IP
--- OUTSIDE RECORDS SUMMARY | 2024-07-06 19:35 | XMS_ITS | Referral Summary ---
Author Organization [facility] Address [address] [place] [address] Phone Care Team Providers Care Cross Enterprise Integrator Name Role Phone Kisha Black MD Primary Care Provide r Encounters Date Type Department Care Team Description 06/15/2024 Telephone [facility] Neurology [address] [place] [address] Kacie Naidu NP Prior Auth [...] on file Legal Sex Female 12:15 AM INTERNET ECOMMERCE SPECIALIST Gender Identity Not on file Sexual Orientation Not on file Last Filed Vital Signs Vital Sign Reading Time Taken Comments Blood Pressure 130/80 05/14/2023 10:55 AM INTERNET ECOMMERCE SPECIALIST Pulse 102 03/03/2023 11:32 AM INTERNET ECOMMERCE SPECIALIST Temperature 36.6 C (97.8 F) 08/27/2022 1:22 PM CDT Respiratory Rate 20 08/27/2022 1:22 PM CDT Oxygen Saturation 98% 03/03/2023 11:32 AM INTERNET ECOMMERCE SPECIALIST Inhaled Oxygen Concentration - - Weight 142 kg (313 lb) 05/14/2023 10:55 AM INTERNET ECOMMERCE SPECIALIST Height 177.8 cm (5' 10 ) 05/14/2023 10:55 AM INTERNET ECOMMERCE SPECIALIST Body Mass Index 44.91 05/14/2023 10:55 AM INTERNET ECOMMERCE SPECIALIST Plan of Treatment Not on file Insurance [facility] Care Teams Cross Enterprise Integrator Relationship Specialty Start Date End Date Kisha Black MD PCP - General Family Medicine 07/19/22
--- OUTSIDE RECORDS SUMMARY | 2024-07-06 19:35 | XMS_ITS | Clinical Summary ---
Author Organization [facility] Care Team Providers Care Ultrasonic Welding Machine Operator Name Role Phone Unavailable Primary Care Provider Unavailabl e Social History Tobacco Use Types Packs/Day Years Used Date Smoking Tobacco: Never Assessed Comments Unknown Sex and Gender Information Value Date Recorded Sex Assigned at Not on file Legal Sex Female 11:38 AM REACTOR TECHNICIAN Gender Identity Not on file Sexual Orientation [...]
--- OUTSIDE RECORDS SUMMARY | 2024-07-06 19:35 | XMS_ITS | Clinical Summary ---
Author Organization [facility] Address [address] [place] [address] Care Team Providers Care Ditching Machine Operator Name Role Phone Unavailable Primary Care Provider Unavailabl e Source Comments [facility],non-owned Affiliates and Associated Physician Practices is amultiple site organization consisting of ambulatory clinics and hospital sitesin [place], [place], [place] and [place]. This disclosure is being madepursuant to the Care Everywhere program and may not contain all information available regarding this patient. Last updated 18.[facility] Active Problems Problem Noted Date Diagnosed Date [...]
--- OUTSIDE RECORDS SUMMARY | 2024-07-06 19:35 | XMS_ITS | Encounter Summary ---
Author Organization [facility] Address [address] [place] [address] Care Team Providers Care Informatics Specialist Name Role Phone Kisha Black MD Primary Care Provide r Reason for Visit * Reason Onset Date Comments Prior Auth 06/15/2024 Ubrelvy 100mgEmg ality 100mg Encounter Details Date Type Department Care Team (Late st Contact Info) Description 06/15/2024 Telephone [facility] Neurology [address] [address] Kacie Naidu FILTRATION SUPERVISOR [address] [address] Prior Auth (Ubrelvy 100mg//Emgality 100mg) Social History Tobacco Use Types Packs/Day Years Used Date Smoking Tobacco: Never Passive Smoke Exposure: Never Smokeless Tobacco: Never Personal Safety Answer Date Recorded Getting School Help Needed Not on file 03/28 Comments Unknown Sex and Gender Information Value Date Recorded Sex Assigned at Not on file Legal Sex Female 12:15 AM CUSTODIAN ATHLETIC EQUIPMENT Gender Identity Not on file Sexual Orientation Not on file documented as of this encounter Miscellaneous Notes * Telephone Encounter - Melissa Montoya MA - 07/05/2024 2:45 PM CDT Patient no longer has coverage. * Telephone Encounter - Melissa Montoya MA - 06/15/2024 9:56 AM CST PA submitted for Emgality 120mg through [employer]. Faxed paper to [phone]. Waiting on determination [employer] * Telephone Encounter - Melissa Montoya MA - 06/15/2024 9:51 AM CST PA submitted for Ubrelvy 100mg through [employer]. Faxed paper to [phone]. Waiting on determination [employer] documented in this encounter Plan of Treatment Not on file documented as of this encounter Visit Diagnoses Not on filedocumented in this encounter Care Teams Informatics Specialist Relationship Specialty Start Date End Date Kisha Black MD PCP - General Family Medicine 07/19/22 documented as of this encounter
--- OUTSIDE RECORDS SUMMARY | 2024-07-06 19:35 | XMS_ITS | Encounter Summary ---
Author Organization [facility] Address [address] [place] [address] Care Team Providers Care Healthcare Project Manager Name Role Phone Jimmy Rosales MD Primary Care Provider Kisha Black MD Primary Care Provider [phone] Encounter Details Date Type Department Care Team (Late st Contact Info) Description 03/09/2021 Hospital Follow-up Call [facility] [place] [address] Altagracia Marquez, RN Social History [...] Rule Out 04/01/2022 04/01/2022 04/01/2022 6:10 PM HYDRAULIC MODELING ENGINEER documented as of this encounter Care Teams Healthcare Project Manager Relationship Specialty Start Date End Date Jimmy Rosales MD 3 [facility] [address] [place] [phone] PCP - General FAMILY PRACTICE 12/15/20 11/18/21 Kisha Black MD 3 [facility] [address] [place] [phone] PCP - General FAMILY PRACTICE 11/19/21 documented as of this encounter
--- OUTSIDE RECORDS SUMMARY | 2024-07-06 19:35 | XMS_ITS | Clinical Summary ---
Author Organization [facility] Address [address] [place] [address] Phone Care Team Providers Care Outboard Motors Experimental Mechanic Name Role Phone Kisha Black MD [...] Type Department Care Team Description 06/15/2024 Telephone [facility] Neurology [address] [place] [address] Kacie Naidu NP Prior Auth (Ubrelvy [...] on file Legal Sex Female 12:15 AM NOZZLE CEMENT SPRAYER HELPER Gender Identity Not on file Sexual Orientation Not on file Obstetrics History Last Filed Vital Signs Vital Sign Reading Time Taken Comments Blood Pressure 130/80 05/14/2023 10:55 AM NOZZLE CEMENT SPRAYER HELPER Pulse 102 03/03/2023 11:32 AM NOZZLE CEMENT SPRAYER HELPER Temperature 36.6 C (97.8 F) 08/27/2022 1:22 PM CDT Respiratory Rate 20 08/27/2022 1:22 PM CDT Oxygen Saturation 98% 03/03/2023 11:32 AM NOZZLE CEMENT SPRAYER HELPER Inhaled Oxygen Concentration - - Weight 142 kg (313 lb) 05/14/2023 10:55 AM NOZZLE CEMENT SPRAYER HELPER Height 177.8 cm (5' 10 ) 05/14/2023 10:55 AM NOZZLE CEMENT SPRAYER HELPER Body Mass Index 44.91 05/14/2023 10:55 AM NOZZLE CEMENT SPRAYER HELPER Plan of Treatment Health Maintenance Due Date [...] age to complete this topic Insurance [address] [facility] [place] [id number] Care Teams Outboard Motors Experimental Mechanic Relationship Specialty Start Date End Date Kisha Black MD PCP - General Family Medicine 07/19/22
--- OUTSIDE RECORDS SUMMARY | 2024-07-06 19:35 | XMS_ITS | Encounter Summary ---
Author Organization [facility] Address [address] [place] [address] Care Team Providers Care Accounts Adjustable Clerk Name Role Phone New Referring, Provider Primary Care Provider Un available Jimmy Rosales MD Primary Care Provider Kisha Black MD Primary Care Provider [phone] Encounter Details Date Type Department Care Team (Late st Contact Info) Description 08/30/2020 [employer] Private Message [facility] Patient Accounts [address] [place] [address] [place], [facility] Provider [facility] Patient Financial Services Social History Tobacco Use [...] Rule Out 04/01/2022 04/01/2022 04/01/2022 6:10 PM HELMET COVERER documented as of this encounter Care Teams Accounts Adjustable Clerk Relationship Specialty Start Date End Date New Referring, Provider PCP - General UNKNOWN PHYSICIAN SPECIALTY 06/04/19 12/14/20 Jimmy Rosales MD 3 [facility] [address] [place] [phone] PCP - General FAMILY PRACTICE 12/15/20 11/18/21 Kisha Black MD 3 [facility] [address] [place] [phone] PCP - General FAMILY PRACTICE 11/19/21 documented as of this encounter
--- OUTSIDE RECORDS SUMMARY | 2024-07-06 19:35 | XMS_ITS | Clinical Summary ---
Author Organization [facility] Address [address] [place] [address] Care Team Providers Care Grinding Room Supervisor Name Role Phone Kisha Black MD Primary Care Provider [phone] Allergies No known active allergies Medications vitamin, [...] section 02/19/2021 Microcytic anemia 02/19/2021 Cholestasis during ([facility] Encounter for routine follow-up ([facility]) 06/05/2017 Labor and delivery indicatio n for care or intervention ([facility]) 06/01/2017 Family History Medical History Relation Comments [...] Comments Blood Pressure 127/78 04/01/2022 7:01 PM EXPLOSIVE TECHNICIAN Pulse 95 04/01/2022 7:01 PM EXPLOSIVE TECHNICIAN Temperature 36.3 C (97.3 F) 04/01/2022 4:27 PM EXPLOSIVE TECHNICIAN Respiratory Rate 18 04/01/2022 7:01 PM EXPLOSIVE TECHNICIAN Oxygen Saturation 94% 04/01/2022 7:01 PM EXPLOSIVE TECHNICIAN Inhaled Oxygen Concentration - - Weight 136.1 kg (300 lb) 04/01/2022 4:27 PM EXPLOSIVE TECHNICIAN Height 179.1 cm (5' 10.5 ) 04/01/2022 4:27 PM CS T Body Mass Index 42.44 04/01/2022 4:27 PM EXPLOSIVE TECHNICIAN Plan of Treatment Health Maintenance Due Date [...] 11:13 PM 06/03/2017 2:18 PM Care Teams Grinding Room Supervisor Relationship Specialty Start Date End Date Kisha Black MD PCP - General FAMILY PRACTICE 11/19/21
[2024-07-06] MEDS: traMADol HCL (*CRX) 50 MG TABLET PO (19:49)
[2024-07-06] MEDS: KETOROLAC 30 MG/ML VIAL (*BKC) IM (19:49)
[2024-07-06 19:54] VITALS: PULSE 73; RESP 18; O2SAT 100
== END 2024-07-06 19:56 | disposition home or self-care (01) ==
PROVIDERS: Emergency Provider Emergency Medicine
DX: M54.41 Lumbago with sciatica, right side (principal)
CPT/HCPCS: 96372; 99283; A9270; J1885